=== PATIENT | female | born 2000 | race African-American/Black ===

== ENCOUNTER 2020-11-29 17:02 | Emergency (ER) | payer OTHER, SELFPAY ==
[2020-11-29 17:11] VITALS: BP 127/81; PULSE 64; RESP 24; TEMP 36.8; O2SAT 100
--- NOTE | 2020-11-29 17:33 | ED.WOUNDLAC ---
HPI - Wound/Laceration General Chief Complaint: Wound/Laceration Stated Complaint: insect bite Time Seen by Provider: 11/29/20 17:33 Source: patient Mode of arrival: ambulatory Limitations: no limitations History of Present Illness HPI narrative: Tia Olivares is a 19 yo female with no PMH who comes to express care with spider bite to L lateral ankle. She states it started last week and she opened it earlier in week and it was draining some clear fluid ans a little pus. Is not very tender but also is not clearing up No fever, N/V/D Related Data Allergies Allergy/AdvReac Type Severity Reaction Status Date / Time No Known Allergies Allergy Unknown Unverified 08/04/19 18:22 No Known Allergies Allergy Uncoded 08/04/19 18:22 Review of Systems Review of Systems: Narrative: CONSTITUTIONAL: Denies fever, chills, sweats. EYES: Denies visual changes, redness, discharge. ENT: Denies rhinorrhea, congestion, sore throat, otalgia. CARDIOVASCULAR: Denies chest pain, palpitations, edema. RESPIRATORY: Denies dyspnea, wheezing, cough GASTROINTESTINAL: Denies abdominal pain, nausea, vomiting, diarrhea. GENITOURINARY: Denies dysuria, hematuria, abnormal discharge SKIN: Left lateral wound on ankle NEUROLOGIC: Denies numbness, or focal weakness. PSYCHIATRIC: Denies anxiety or depression. [facility] Past Medical History Medical History No acute medical problems Family History Family History Other Hypertension Social History Social History (Updated 11/29/20 @ 17:36 by Kecia Carnes CNP) Smoking status: Never smoker Alcohol intake: never Comments At time of signature, I agree with nursing past medical, surgical, social and family history. There is no relevant family history pertinent to the presenting complaint. Exam Narrative: Exam Narrative: GENERAL: This is a well-nourished, well-developed patient, in mild distress. HEAD: normocephalic, atraumatic. EYES: . Sclera clear/white. Vision is grossly intact. EARS: External ears normal, . Hearing grossly intact. NOSE: External nose normal without nasal discharge, nares without redness, no rhinorrhea. THROAT: Mucous membranes moist, NECK: Neck supple, CARDIOVASCULAR: Regular rate and rhythm without murmurs, gallops, or rubs. RESPIRATORY: Clear to auscultation. Breath sounds equal bilaterally. No wheezes, rales, or rhonchi. GASTROINTESTINAL: Abdomen soft SKIN: warm, intact with 3 x 3 area on left lateral ankle that is mildly red not indurated not particularly tender that looks like small coalesced bumps - no extended edema around there NEURO: awake, alert, and oriented to person, place and time. There were no obvious focal neurologic abnormalities. Steady gait EXTREMITIES: Normal range of motion. BACK: Nontender without deformity Course Course Emergency Course: Patient came to express care to evaluate wound on left lateral ankle Bactrim and Keflex and warm soaks to ankle She is not to try to drain on her own is to keep it covered with a dressing during the day Follow-up with primary care physician Vital Signs Vital signs: Vital Signs Temperature 98.2 F 11/29/20 17:11 Pulse Rate 64 11/29/20 17:11 Respiratory Rate 24 H 11/29/20 17:11 Blood Pressure 127/81 11/29/20 17:11 Pulse Oximetry 100 11/29/20 17:11 Temperature 98.2 F 11/29/20 17:11 Pulse Rate 64 11/29/20 17:11 Respiratory Rate 24 H 11/29/20 17:11 Blood Pressure 127/81 11/29/20 17:11 Pulse Oximetry 100 11/29/20 17:11 MDM - Wound/Laceration Differential Diagnosis Differential diagnosis: Likely abscess, abrasion, avulsion of skin and other (Cellulitis vs insect bite) Critical Care Time Critical Care Time Critical Care Time: No Discharge Plan Discharge Clinical Impression: Cellulitis of left ankle Patient Disposition: Home, Self-Care Condition: Stable I
== END 2020-11-29 17:47 | disposition home or self-care (01) ==
PROVIDERS: Emergency Provider Nurse Practitioner; PCP Pediatrics
DX: L03.116 Cellulitis of left lower limb (principal)
CPT/HCPCS: 99213; G0463

== ENCOUNTER 2021-01-16 15:52 | Outpatient (RCR) | payer OTHER, SELFPAY | END 2021-04-16 23:59 | disposition home or self-care (01) | LOC: ANHLAB 15:52 | PROVIDERS: PCP Internal Medicine; Visit Provider Obstetrics & Gynecology | DX: O26.851 Spotting complicating pregnancy, first trimester (principal); Z3A.00 Weeks of gestation of pregnancy not specified | CPT/HCPCS: 36415; 84702; 85461 ==

== ENCOUNTER → 2021-01-24 14:24 | Outpatient (CLI) | payer OTHER, SELFPAY ==
--- NOTE | ~2021-01-24 | US_ITS ---
US OB transvaginal DATE: 01/24/2021 15:07 INDICATION: Vaginal spotting TECHNIQUE: Real-time imaging and Doppler analysis COMPARISON: None FINDINGS: The uterus measures 9.3 cm height, 5.6 cm AP and 6.5 cm transverse dimension. A normally sh aped intrauterine gestational sac is identified with normal surrounding decidual reaction, with pole and cardiac motion. Yolk sac is identified. No subchorionic hematoma is noted. [place]-rump length measurement 0.74 cm is consistent with estimated gestational age of 6 weeks 4 days +/- 4 days. 1.7 cm right ovarian cyst. The ovaries are otherwise unremarkable. Vascular flow is demonstrated to t he ovaries. No pelvic mass or abnormal pelvic free fluid collection is noted. IMPRESSION: Estimated gestational age of 6 weeks 4 days +/- 4 days; BONY by ultrasound is 09/15/2021, c ompared to 09/14/2021 by LMP Reviewed, dictated and finalized at [facility]. Reviewed, dictated and finalized at [facility]. IMPRESSION: Estimated gestational age of 6 weeks 4 days +/- 4 days; BONY by ultr asound is 09/15/2021, compared to 09/14/2021 by LMP
== END ==
PROVIDERS: Visit Provider Obstetrics & Gynecology
DX: O26.851 Spotting complicating pregnancy, first trimester (principal); Z3A.01 Less than 8 weeks gestation of pregnancy
CPT/HCPCS: 76817

== ENCOUNTER 2021-03-15 12:57 | Outpatient (CLI) | payer OTHER, SELFPAY ==
[2021-03-15 13:36] LABS: Basophils Percent Auto 0.4 % (0.2-1.2); Eosinophils Absolute Auto 0.1 K/mm3 (0-0.3); Eosinophils Percent Auto 1.1 % (0-4.4); Hematocrit 34.2 % (37.0-47.0); Hemoglobin 11.3 g/dL (12.0-15.0); Immature Granulocyte Absolute 0.03 K/mm3 (0.00-0.031); Immature Granulocyte Percent A 0.3 % (0-0.5); Lymphocytes Absolute Auto 1.71 K/mm3 (0.9-3.2); Lymphocytes Percent Auto 18.1 % (18.3-44.2); Mean Corpuscular Hemoglobin 29.6 pg (26-34); Mean Corpuscular Volume 89.5 fl (80-100); Mean Platelet Volume 9.3 fl (7.4-10.4); Monocytes Absolute Auto 0.5 K/mm3 (0.1-0.6); Monocytes Percent Auto 4.8 % (2.6-8.5); Neutrophils Absolute Auto 7.1 K/mm3 (1.3-6.7); Neutrophils Percent Auto 75.3 % (45.5-73.1); Platelet Count Result 219 k/mm3 (150-375); Red Blood Count 3.82 M/mm3 (4.2-5.4); Red Cell Distribution Width 14.6 % (11.5-14.5); White Blood Count 9.4 K/mm3 (4.5-10.0)
[2021-03-15 14:06] LABS: Hemoglobin A1C 5.2 % (<5.7)
[2021-03-15 14:26] LABS: Vitamin D 25 Hydroxy 27.6 ng/mL
[2021-03-15 14:27] LABS: HIV 1/2 Ab P24 Ag Result Negative (Negative)
[2021-03-15 14:38] LABS: Hepatitis B Surface Antigen Negative (Negative); Rubella IgG Antibody 59.5 IU/ML
[2021-03-18 08:55] LABS: Rapid Plasma Reagin Non-Reactive (NonReactive)
== END 2021-03-15 12:58 | disposition home or self-care (01) ==
PROVIDERS: PCP Internal Medicine; Visit Provider Obstetrics & Gynecology
DX: Z36.9 Encounter for antenatal screening, unspecified (principal); Z3A.00 Weeks of gestation of pregnancy not specified
CPT/HCPCS: 36415; 82306; 83036; 85025; 86592; 86703; 86762; 86850; 86900; 86901; 87340; G0432

== ENCOUNTER 2021-03-21 16:17 | Outpatient (CLI) | payer OTHER, SELFPAY ==
[2021-03-25 22:13] LABS: Hematocrit 34.4 % (35.0-45.0); Hemoglobin 11.7 g/dL (11.7-15.5); MCH 29.9 pg (27.0-33.0); RDW 15.5 % (11.0-15.0); Red Blood Cell Count 3.91 Mill/uL (3.80-5.10)
== END 2021-03-21 16:18 | disposition home or self-care (01) ==
PROVIDERS: PCP Internal Medicine; Visit Provider Obstetrics & Gynecology
DX: Z83.2 Family history of diseases of the blood and blood-forming organs and certain disorders involving the immune mechanism (principal)
CPT/HCPCS: 36415; 83021

== ENCOUNTER → 2021-04-12 10:16 | Outpatient (CLI) | payer OTHER, SELFPAY ==
--- NOTE | ~2021-04-12 | US_ITS ---
EXAMINATION: US OB >= 14 weeks Fetus DATE: 04/12/2021 11:25 INDICATION: anatomy scan during early second trimester of . TECHNIQUE: Multiple obstetric sonographic images performed. FINDINGS: There is a single living fetus in breech presentation. The placenta is fundal. Amniotic fluid volume is subjectively normal. heart rate of 146 beats per minute. The following anatomy was identified as normal: Ventricles, choroid plexus, falx and cava septum pellucidum Cerebellum and cisterna magna Nuchal fold Upper lip Spine Heart Diaphragm Stomach Kidneys Bladder 3 vessel cord and cord insertion Bilateral upper and lower extremities including hands and feet The following biometric data were obtained: BPD: 4.2 cm -> 18 weeks 4 days Head circumference: 15.4 cm -> 18 weeks 3 days Abdominal circumference: 12.9 cm -> 18 weeks 3 days Femur length: 2.3 cm -> 17 weeks 0 days The femoral length to head circumference ratio is greater than 2 standard deviations below the mean. These measurements are otherwise concordant. Head circumference to abdominal circumference ratio: 1.20 (normal range 1.08-1.27). Estimated weight: 212 g (+/-) 32 g. or 7 oz. (+/-) 1 oz. IMPRESSION: 1. Single living fetus with breech presentation with heart rate of 146 bpm. 2. Gestational age by ultrasound of 18 weeks 1 day(s) (+/-) 1 week 2 day(s) with ultrasound estimat ed date of delivery (BONY) of 09/12/2021. Estimated weight is 53rd percentile by Hadlock criteria when 09/15/2021 is used as the BONY. Please correlate with clinical information or earlier ultrasounds for most accurate BONY. 3. Normal survey. Reviewed, dictated and finalized at location [facility]. IMPRESSION: 1. Single living fetus with breech presentation with heart rate of 146 b pm. 2. Gestational age by ultrasound of 18 weeks 1 day(s) (+/-) 1 week 2 day(s) w ith ultrasound estimated date of delivery (BONY) of 09/12/2021. Estimated w eight is 53rd percentile by Hadlock criteria when 09/15/2021 is used as the BONY. Please correlate with clinical information or earlier ultrasounds for most acc urate BONY. 3. Normal survey.
== END ==
PROVIDERS: Visit Provider Obstetrics & Gynecology Gynecology
DX: Z36.9 Encounter for antenatal screening, unspecified (principal); Z3A.18 18 weeks gestation of pregnancy
CPT/HCPCS: 76805

== ENCOUNTER 2021-07-22 19:42 | Observation (INO) | payer OTHER, SELFPAY ==
[2021-07-22] VITALS (23 sets, daily range): BP systolic 99–122; BP diastolic 14–69; PULSE 66–121; O2SAT 97–100
[2021-07-22] MEDS: LACTATED RINGERS 1,000 ML 999 ML IV CONT (20:54)
[2021-07-22] MEDS: ONDANSETRON INJ 4 MG/2 ML VIAL IV PUSH (20:54)
[2021-07-22] MEDS: LACTATED RINGERS 1,000 ML 125 ML IV CONT (22:23)
[2021-07-22] MEDS: TERBUTALINE SULFATE 1 MG/ML VIAL 0.25 MG SUB-Q (23:16)
[2021-07-23] VITALS (53 sets, daily range): BP systolic 99–119; BP diastolic 42–62; PULSE 67–125; O2SAT 98–100
[2021-07-23] MEDS: TERBUTALINE SULFATE 1 MG/ML VIAL 0.25 MG SUB-Q (02:53)
[2021-07-23] MEDS: LACTATED RINGERS 1,000 ML 125 ML IV CONT (06:25)
--- NOTE | 2021-07-23 09:10 | PC.NURSE ---
0800- on unit, discussed pt's status overnight. discharge orders received.
--- NOTE | 2021-07-23 09:12 | OBADM ---
This patient, Tia Olivares, admitted to the OB room OB Post 116 for observation. Patient/family oriented to hospital policies and general routines including ID bracelet, bed and alarms, visiting hours, pain management, procedures, bathroom and other care routines, personal items, smoking policy, room service/diet, and visiting hours. Patient/Family are encouraged to report perceived risks to care and to ask questions if they do not understand what they are told or what they should do.
--- NOTE | 2021-07-25 07:31 | PM.OBTRLD ---
OB - Triage/Final Diagnosis Visit Information Reason for evaluation: other (nausea and vomiting) Comments/Additional reasons for admission: I have assessed the risk for this patient, Tia Ryan Olivares, and determined that she would benefit from observation care.
== END 2021-07-23 08:30 | disposition home or self-care (01) ==
PROVIDERS: Admitting Provider Obstetrics & Gynecology Gynecology; Visit Provider Obstetrics & Gynecology Gynecology
DX: O21.9 Vomiting of pregnancy, unspecified (principal); Z3A.00 Weeks of gestation of pregnancy not specified
CPT/HCPCS: 96360; 96361; 96372; 96374; G0378; G0379; J2405; J3105; J7120

== ENCOUNTER 2021-08-29 14:23 | Outpatient (CLI) | payer OTHER, SELFPAY ==
[2021-08-29] VITALS (7 sets, daily range): BP systolic 118–124; BP diastolic 75–81; PULSE 68–103
[2021-08-29 15:12] LABS: Basophils Percent Auto 0.2 % (0.2-1.2); Eosinophils Absolute Auto 0.1 K/mm3 (0-0.3); Eosinophils Percent Auto 0.6 % (0-4.4); Hematocrit 31.8 % (37.0-47.0); Hemoglobin 10.6 g/dL (12.0-15.0); Immature Granulocyte Absolute 0.05 K/mm3 (0.00-0.031); Immature Granulocyte Percent A 0.6 % (0-0.5); Lymphocytes Absolute Auto 1.54 K/mm3 (0.9-3.2); Lymphocytes Percent Auto 18.5 % (18.3-44.2); Mean Corpuscular HGB Conc 33.3 g/dl (32-36); Mean Corpuscular Hemoglobin 30.5 pg (26-34); Mean Corpuscular Volume 91.6 fl (80-100); Mean Platelet Volume 9.8 fl (7.4-10.4); Monocytes Absolute Auto 0.8 K/mm3 (0.1-0.6); Monocytes Percent Auto 9.7 % (2.6-8.5); Neutrophils Absolute Auto 5.8 K/mm3 (1.3-6.7); Neutrophils Percent Auto 70.4 % (45.5-73.1); Platelet Count Result 165 k/mm3 (150-375); Red Blood Count 3.47 M/mm3 (4.2-5.4); Red Cell Distribution Width 13.6 % (11.5-14.5); White Blood Count 8.3 K/mm3 (4.5-10.0)
[2021-08-29 15:24] LABS: Alanine Aminotransferase 16 U/L (4-35); Albumin Level 3.5 g/dL (3.5-5.1); Alkaline Phosphatase 119 U/L (38-126); Anion Gap 8 mmol/L (8-16); Aspartate Amino Transferase 30 U/L (14-36); Bilirubin,Total 0.6 mg/dL (0.2-1.3); Blood Urea Nitrogen 3 mg/dL (7-17); Calcium 9.1 mg/dL (8.4-10.2); Carbon Dioxide 23 mmol/L (22-30); Chloride 105 mmol/L (98-107); Estimated Glomerular Filt Rate > 60; Glucose 75 mg/dL (65-110); Potassium 3.7 mmol/L (3.4-5.0); Sodium 136 mmol/L (137-145); Uric Acid 4.5 mg/dL (2.5-7.5)
[2021-08-29 15:48] LABS: Add Urine Microscopic? NO; Appearance Urine Clear (Clear); Bilirubin Urine Negative (Negative); Blood Urine Negative (Negative); Color Urine Yellow (Yellow); Glucose Urine UA Negative (Negative); Ketones Urine Negative (Negative); Leukocyte Esterase Ur Negative LEU/UL (NEGATIVE); Nitrate Urine Negative (Negative); Protein Urine Negative (Negative); Specific Grav Ur 1.006 (1.001-1.035); Urobilinogen Urine Negative mg/dL (<2.0)
[2021-08-29 15:53] LABS: Creatinine Urine 60.8 mg/dL; Total Protein Urine Random 6 mg/dL
--- NOTE | 2021-08-29 16:07 | PC.NURSE ---
1606--Report to Dr. Fu re: v.s., labwork results, and reactive NST. Orders to send pt. home with instructions for 24hr. urine to be returned tomorrow.
== END 2021-08-29 16:15 | disposition home or self-care (01) ==
LOC: ANHOBOP 14:29 → ANHOBPP 09-03 07:32
PROVIDERS: Visit Provider Obstetrics & Gynecology
DX: O13.9 Gestational [pregnancy-induced] hypertension without significant proteinuria, unspecified trimester (principal); Z3A.00 Weeks of gestation of pregnancy not specified
CPT/HCPCS: 36415; 59025; 80053; 81003; 82570; 84156; 84550; 85025; 87086; 99199

== ENCOUNTER 2021-08-30 16:54 | Outpatient (NON) | payer OTHER, SELFPAY ==
[2021-08-30 17:14] VITALS: BMI 31.6
[2021-08-30 19:50] LABS: Collection Time Urine 24 HOURS
[2021-08-30 19:51] LABS: Patient Weight 190 Lbs; Total Volume 24 Hour Urine 2400 ml
[2021-08-30 20:06] LABS: Creatinine Clearance Urine 163.9 ml/min (75-125); Creatinine Urine 65.8 mg/dL; Total Protein Urine 24 Hr 168 mg/24hr (28-141); Total Protein Urine Random 7 mg/dL
== END 2021-08-30 16:55 | disposition home or self-care (01) ==
LOC: ANHOBOP 17:11
PROVIDERS: Visit Provider Obstetrics & Gynecology
DX: Z34.90 Encounter for supervision of normal pregnancy, unspecified, unspecified trimester (principal); Z3A.00 Weeks of gestation of pregnancy not specified
CPT/HCPCS: 81050; 82575; 84156

== ENCOUNTER 2021-09-09 12:11 | Observation (INO) | payer OTHER, SELFPAY ==
--- NOTE | 2021-09-09 12:11 | OBADM ---
This patient, Tia Olivares, admitted to the OB room Labor/Delivery/Recovery 107 for observation. Patient/family oriented to hospital policies and general routines including ID bracelet, bed and alarms, visiting hours, pain management, procedures, bathroom and other care routines, personal items, smoking policy, room service/diet, and visiting hours. Patient/Family are encouraged to report perceived risks to care and to ask questions if they do not understand what they are told or what they should do.
--- NOTE | 2021-09-16 07:35 | PM.OBTRLD ---
OB - Triage/Final Diagnosis Visit Information Reason for evaluation: threatened labor Comments/Additional reasons for admission: I have assessed the risk for this patient, Tia Olivares, and determined that she would benefit from observation care.
== END 2021-09-09 15:05 | disposition home or self-care (01) ==
PROVIDERS: Admitting Provider Obstetrics & Gynecology Gynecology; Visit Provider Obstetrics & Gynecology Gynecology
DX: O47.03 False labor before 37 completed weeks of gestation, third trimester (principal); Z3A.39 39 weeks gestation of pregnancy
CPT/HCPCS: G0378; G0379

== ENCOUNTER 2021-09-10 00:35 | Inpatient (IN) | payer OTHER, SELFPAY ==
[2021-09-10] VITALS (132 sets, daily range): BP systolic 100–156; BP diastolic 44–91; PULSE 16–215; RESP 16–18; TEMP 36.7–37.2; O2SAT 96–100; BMI 29.5
--- NOTE | 2021-09-10 01:21 | LDADM ---
This patient, Tia Olivares, was admitted to Labor/Delivery/Recovery 106 on 09/10/21 at 00:35. Plans for labor, pain management and were discussed with patient. Patient/family oriented to hospital policies and general routines including ID bracelet, bed and alarms, visiting hours, pain management, procedures, bathroom and other care routines, personal items, smoking policy, room service/diet and guest tray routines, security routines, and visiting hours. Patient/Family are encouraged to report perceived risks to care and to ask questions if they do not understand what they are told or what they should do. See OBIX for further documentation.
[2021-09-10 01:36] LABS: Basophils Percent Auto 0.2 % (0.2-1.2); Hematocrit 35.8 % (37.0-47.0); Hemoglobin 11.9 g/dL (12.0-15.0); Immature Granulocyte Absolute 0.09 K/mm3 (0.00-0.031); Immature Granulocyte Percent A 0.7 % (0-0.5); Lymphocytes Absolute Auto 1.73 K/mm3 (0.9-3.2); Lymphocytes Percent Auto 14.1 % (18.3-44.2); Mean Corpuscular HGB Conc 33.2 g/dl (32-36); Mean Corpuscular Hemoglobin 29.7 pg (26-34); Mean Corpuscular Volume 89.3 fl (80-100); Mean Platelet Volume 10.1 fl (7.4-10.4); Monocytes Absolute Auto 0.7 K/mm3 (0.1-0.6); Neutrophils Absolute Auto 9.7 K/mm3 (1.3-6.7); Platelet Count Result 223 k/mm3 (150-375); Red Blood Count 4.01 M/mm3 (4.2-5.4); Red Cell Distribution Width 13.8 % (11.5-14.5); White Blood Count 12.3 K/mm3 (4.5-10.0)
--- NOTE | 2021-09-10 02:08 | WPDANESEPPF ---
Anes - Initial Pre Proc Eval Procedure: labor epidural Date/Time: 09/10/21 02:08 Surgeon: Christiano Fu MD Pre Op Diagnosis: labor pain Pre Op Diagnosis: Contractions Patient Data Age: 20 Gender: F Height: 1.65 m Weight: 80.5 kg Last Vital Signs Pulse 105 H 09/10/21 02:06 BP 147/71 H 09/10/21 02:06 Pulse Ox 100 09/10/21 02:05 Allergies Allergy/AdvReac Type Severity Reaction Status Date / Time No Known Allergies Allergy Unknown Unverified 08/04/19 18:22 Home Medications Medication Instructions Recorded Confirmed Type 1 tablet PO DAILY 08/29/21 09/10/21 History ferrous sulfate [Iron (ferrous 325 mg PO DAILY 08/29/21 09/10/21 History sulfate)] Laboratory Tests 09/10/21 09/10/21 01:06 01:06 WBC 12.3 K/mm3 H K/mm3 (4.5-10.0) RBC 4.01 M/mm3 L M/mm3 (4.2-5.4) Hgb 11.9 g/dL L g/dL (12.0-15.0) Hct 35.8 % L % (37.0-47.0) MCV 89.3 fl fl (80-100) MCH 29.7 pg pg (26-34) MCHC 33.2 g/dl g/dl (32-36) RDW 13.8 % % (11.5-14.5) Plt Count 223 k/mm3 k/mm3 (150-375) MPV 10.1 fl fl (7.4-10.4) Immature Gran % (Auto) 0.7 % H % (0-0.5) Neut % (Auto) 79.0 % H % (45.5-73.1) Lymph % (Auto) 14.1 % L % (18.3-44.2) [place] % (Auto) 6.0 % % (2.6-8.5) Eos % (Auto) 0.0 % % (0-4.4) Baso % (Auto) 0.2 % % (0.2-1.2) Lymph # (Auto) 1.73 K/mm3 K/mm3 (0.9-3.2) Sampson # (Auto) 0.7 K/mm3 H K/mm3 (0.1-0.6) Eos # (Auto) 0.0 K/mm3 K/mm3 (0-0.3) Baso # (Auto) 0.0 K/mm3 K/mm3 (0.0-0.1) Abs Immat Gran (auto) 0.09 K/mm3 H K/mm3 (0.00-0.031) Absolute Neuts (auto) 9.7 K/mm3 H K/mm3 (1.3-6.7) Absolute Nucleated RBC 0.0 K/mm3 K/mm3 (0.0-0.012) Nucleated RBC % 0.0 % % (0.0-0.2) RPR Pending Patient hx anesthesia problems: none Family hx anesthesia problems: none Results Review: All pre-operative results and documents have been reviewed as part of the pre-operative evaluation. [facility] Past Medical History Medical History Asthma No acute medical problems Seasonal allergies Family History Family History Mother Hypertension Father Cancer Grandparent Cancer Social History Social History Smoking status: Never smoker Alcohol intake: never Substance use: never Gender identity (if verbalized by the patient): Female Sexual Orientation (if Verbalized by the Patient): Straight or Heterosexual Spiritual care concerns: No Anes - Eval Final PreProcedure Day of Procedure 09/10/21 02:08 Patient weight: overweight ASA classification: II Anesthesia type and monitoring: regional epidural and standard monitoring Results Review: All pre-operative results and documents have been reviewed as part of the pre-operative evaluation. Informed Consent: The patient's anesthetic plan and its attendant risks and benefits were discussed with the patient/family/POA. Questions were solicited and answers provided to the satisfaction of the patient/family/POA.
[2021-09-10] MEDS: LACTATED RINGERS 1,000 ML 125 ML IV CONT (02:21)
--- NOTE | 2021-09-10 04:41 | WPDOBADMIT ---
Obstetrics - Admit Note Admission Note: record reviewed. No pertinent additions to the history and/or any subsequent changes in the physical findings that are not consistent with the expected course of the were found. AROm clear fluid 7 cm vertex. Additions to the history and/or subsequent changes in the physical findings follow. None.
[2021-09-10] MEDS: OXYTOCIN 30 UNITS/NS 500 ML 30 UNITS/500 ML BAG IV CONT (05:03)
[2021-09-10 07:29] LABS: Rapid Plasma Reagin Non-Reactive (NonReactive)
[2021-09-10] MEDS: ONDANSETRON INJ 4 MG/2 ML VIAL IV PUSH (09:12)
--- NOTE | 2021-09-10 10:38 | PM.OBPRVD ---
OB - Delivery Note Procedure Delivery date: 09/10/21 Procedure: Intrapartal events: None Induction method: none Delivery augmentation: rupture of membranes and pitocin Delivery monitor: external FHT and internal uterine Route of delivery: Laceration Description: Perineal - 2nd Degree Delivery repair: vicryl (3-0) Specimen: Yes (placenta) Quantitative Blood Loss (ml): 425 Anesthesia type: Epidural Disposition: floor Baby Date of : 09/10/21 Weeks of gestation at delivery: 39 gender: Male presentation: vertex position: Right Occiput Anterior Placenta delivery description: Spontaneous cord vessel description: 3 Vessels and Nuchal Cord score one minute: 9 score five minutes: 9
--- NOTE | 2021-09-10 10:39 | P.DS_ITS ---
DS: Admitting Diagnosis Discharge Date 09/12/21 Admitting Diagnosis labor DS: Discharge Diagnosis Discharge Diagnosis (1) (normal spontaneous vaginal delivery): Code(s): O80 - Encounter for full-term uncomplicated delivery Status: Acute OB - DS: Summary OB Procedures : Ultrasound OB Procedures Intrapartum: Spontaneous Vag Delivery OB Procedures: : None Peripartum Data Delivery Method: Natural Vaginal Laceration Description: Perineal - 2nd Degree complications: none Status at Discharge Functional status at discharge: independent ambulation Overall status at discharge: patient is progressing back to baseline Time Spent with Patient Time attestation: Total time spent providing and/or coordinating discharge services: DS: Data Data Completed and Pending Labs on day of discharge: Labs from last 24 hours 09/10/21 09/10/21 09/10/21 01:06 01:06 01:06 WBC 12.3 H RBC 4.01 L Hgb 11.9 L Hct 35.8 L MCV 89.3 MCH 29.7 MCHC 33.2 RDW 13.8 Plt Count 223 MPV 10.1 Immature Gran % (Auto) 0.7 H Neut % (Auto) 79.0 H Lymph % (Auto) 14.1 L [place] % (Auto) 6.0 Eos % (Auto) 0.0 Baso % (Auto) 0.2 Lymph # (Auto) 1.73 [place] # (Auto) 0.7 H Eos # (Auto) 0.0 Baso # (Auto) 0.0 Abs Immat Gran (auto) 0.09 H Absolute Neuts (auto) 9.7 H Absolute Nucleated RBC 0.0 Nucleated RBC % 0.0 RPR Non-reactive Blood Type AB Positive Antibody Screen Negative Discharge Plan Discharge Attending physician on discharge: Christiano Fu Discharging Clinician: Leandra Leon Anticipated Discharge Date/Time: 09/12/21 10:40 Patient Disposition: Home, Self-Care Activity: may shower and pelvic rest Diet: regular Patient Instructions: Antibiotic Form Stand Alone Forms: General Discharge Information Follow-up/Referrals: Christiano Fu MD [Physician] - 6 Weeks Discharge Medications: New norethindrone (contraceptive) 0.35 mg tablet 0.35 mg PO DAILY Qty: 28 RF: 6 Continued ferrous sulfate [Iron (ferrous sulfate)] 325 mg (65 mg iron) Tablet 325 mg PO DAILY RF: 0 28-800 mg-mcg Tablet 1 tablet PO DAILY RF: 0 Date of admission: 09/10/21 00:35 Primary Care Provider: PHYSICIAN,TELEVISION ENGINEER Admitting Provider: Christiano Fu Attending physician on admission: Christiano Fu Condition: Stable
[2021-09-10] MEDS: OXYTOCIN 30 UNITS/NS 500 ML 30 UNITS/500 ML BAG 125 UNITS IV CONT (11:00)
[2021-09-10] MEDS: IBUPROFEN 600 MG TABLET PO (12:42)
[2021-09-10] MEDS: WITCH HAZEL 40 PADS 1 PAD TOPICAL (12:43)
[2021-09-10] MEDS: BENZOCAINE 20% AER SPR (*SP) 56 GM CAN 1 SPRAY TOPICAL (12:43)
--- NOTE | 2021-09-10 13:50 | PC.NURSE ---
Mother called out for assist with feeding, reporting eagerly fed for first feeding. is able to freely thrust tongue past gum ridge and flange both lips. Skin is intact on both nipples, no redness and bruising noted. Reviewed feeding cues, frequencies, duration of feedings, feeding elimination flow sheet, and signs of adequate intake. Demonstrated stimulation techniques to wake for feeding. Assisted with to breast. Reviewed positioning/alignment in cross cradle, holding breast in ?U? hold and guided asymmetrical latch on. Reviewed rational for each. Infant able to latch correctly within a few attempts. nursed eagerly with steady draws and occasional/frequent swallowing noted, some pausing noted. Reviewed signs of a correct latch, effective nursing and suck swallow ratio. Suggested mother stimulate while feeding to increase stimulation for milk supply, for increased intake and to assist with maintaining deep latch. would slip to shallow latch causing tenderness. Demonstrated how to adjust latch more deeply while feeding if needed. Mother reports she can feel the difference in latch with no tenderness. Nipple care reviewed of lanolin after feedings, warm compresses as needed. Instructed mother to call out for RN assistance if she is unable to latch infant for feeding or she has discomfort with nursing. Instructed feeding should be initiated three hours from start of last feeding or if feeding cues are noted before. Mother voiced understanding of information shared.
--- NOTE | 2021-09-10 14:00 | PC.NURSE ---
Patient transferred to post room #283 via wheelchair. Support person present. Oriented to unit, room, information board, rooming in, admission packet and security measures. Patient verbalizes understanding.
[2021-09-10] MEDS: ACETAMINOPHEN 325 MG TABLET 650 MG PO (17:05)
[2021-09-11] MEDS: IBUPROFEN 600 MG TABLET PO ×3 (00:43→16:51)
[2021-09-11] MEDS: ACETAMINOPHEN 325 MG TABLET 650 MG PO (00:43)
[2021-09-11 04:30] VITALS: BP 106/52; PULSE 98; RESP 18; TEMP 36.7
[2021-09-11 04:58] LABS: Hematocrit 27.5 % (37.0-47.0); Hemoglobin 9.2 g/dL (12.0-15.0)
[2021-09-11 08:15] VITALS: BP 117/63; PULSE 76; RESP 18; TEMP 36.8; O2SAT 98
[2021-09-11] MEDS: POLYSACCHARIDE IRON COMPLEX 150 MG CAPSULE PO ×2 (08:47→16:51)
[2021-09-11] MEDS: MULTIVIT/MIN/PREN/FOL AC/IRON TABLET 1 TAB PO (08:48)
[2021-09-11] MEDS: DOCUSATE SODIUM 100 MG CAPSULE PO ×2 (08:48→16:51)
--- NOTE | 2021-09-11 08:56 | WPDANLDPN2 ---
Anes-Prog Note L&D Date/Time: 09/11/21 08:56 Comfortable throughout: labor and delivery (perineal pressure only) Neuraxial method: epidural Epidural/Spinal procedure site: clean & non-tender Neuro status: Neuro function grossly intact. Cardiovascular status: normal Respiratory status: normal Airway patency: baseline Mental status: baseline Post-Op hydration status: normal Vital Signs: Last Vital Signs Temp 98.0 F 09/11/21 04:30 Pulse 98 09/11/21 04:30 Resp 18 09/11/21 04:30 BP 106/52 L 09/11/21 04:30 Pulse Ox 96 09/10/21 16:00 Pain score (VAS): 0 Post-procedural complaints: none Patient feedback: Patient satisfied with anesthetic care.
[2021-09-11 18:30] VITALS: BP 126/67; PULSE 74; RESP 18; TEMP 37.1
[2021-09-12] MEDS: ACETAMINOPHEN 325 MG TABLET 650 MG PO ×2 (00:08→05:00)
[2021-09-12] MEDS: IBUPROFEN 600 MG TABLET PO ×2 (00:09→08:56)
--- NOTE | 2021-09-12 07:37 | PM.OBPNVD ---
OB - PN: Subj Subjective Date/time seen: 09/12/21 07:37 Patient comments: no complaints and pain well controlled baby status: doing well OB - PN: Obj Data Labs CBC & Chem 7: 09/11/21 03:41 OB - PN A/P Plan day: 2 Plan: routine care, discharge home, follow up 6 weeks and other (plans micronor for bc) Time Spent With Patient Time: Total time spent is greater than 50% in coordination of care (as documented) at patient's floor/unit and/or counseling patient: Exam : Bimanual exam- vagina & uterus: other (Uterus firm, nt @U)
[2021-09-12 08:35] VITALS: BP 121/67; PULSE 71; RESP 16; TEMP 36.6; O2SAT 100
[2021-09-12] MEDS: POLYSACCHARIDE IRON COMPLEX 150 MG CAPSULE PO (08:56)
[2021-09-12] MEDS: MULTIVIT/MIN/PREN/FOL AC/IRON TABLET 1 TAB PO (08:56)
[2021-09-12] MEDS: DOCUSATE SODIUM 100 MG CAPSULE PO (08:56)
--- NOTE | 2021-09-12 09:00 | PC.NURSE ---
Patient viewed the discharge video Mother & Baby Care, The First Two Weeks . Patient was given the opportunity and encouraged to ask questions. Patient verbalized understanding of information shared and has been given the mother/baby guide for home reference.
--- NOTE | 2021-09-12 10:01 | PM.OBPNVD ---
OB - PN: Subj Subjective Date/time seen: 09/11/21 07:50 doing well no complaints OB - PN: Obj Data Labs CBC & Chem 7: 09/11/21 03:41 OB - PN A/P Assessment and Plan (1) (normal spontaneous vaginal delivery): Code(s): O80 - Encounter for full-term uncomplicated delivery Status: Acute Assessment and Plan: continue with pp care Time Spent With Patient Time: Total time spent is greater than 50% in coordination of care (as documented) at patient's floor/unit and/or counseling patient: Exam Narrative: ff below umbilicus
--- NOTE | 2021-09-12 10:51 | PC.NURSE ---
Consult with pt., observed mother is able to independently latch infant with appropriate positioning/alignment. Infant eagerly latches on first attempt with long rhythmical draws and frequent swallowing noted. Mother reports she no longer has issues with latching to right breast after previous assist with cross cradle. She denies any nipple discomfort, is feeding as required and waking to feed if needed. has had at least 8 effective feedings in the past 24 hours, and is currently meeting outcomes for weight, output, jaundice and feeding frequencies. Mother states she feels confident to continue effective at home. Reviewed transition to breast milk, signs of adequate intake, and engorgement/relief. Instructed to call ICP if intake/output less than required. Reviewed regular medications mother is taking. Information provided per Brielle. Reviewed community resources on the [employer] website and in the Mom/Baby guide. Information on outpatient services provided. Mother has no further questions at this time. All information reviewed with pt.'s mother per her request. Instructed feeding should be initiated three hours from start of last feeding or if feeding cues are noted before until seen by ICP. Mother voiced understanding of information shared.
[2021-09-13 11:58] VITALS: BP 135/74; PULSE 84; RESP 20; TEMP 37.7; O2SAT 100
== END 2021-09-12 11:42 | disposition home or self-care (01) | DRG 807 ==
LOC: ANHLDR 10:41 → ANHOB2 09-12 08:30 → ANHLDR 09-13 08:57 → ANHOB2 09-13 08:57
PROVIDERS: Admitting Provider Obstetrics & Gynecology; Visit Provider Obstetrics & Gynecology Gynecology
DX: O69.81X0 Labor and delivery complicated by cord around neck, without compression, not applicable or unspecified (principal); Z37.0 Single live birth; O70.1 Second degree perineal laceration during delivery; Z3A.39 39 weeks gestation of pregnancy
CPT/HCPCS: 36415; 85014; 85018; 85025; 86592; 86850; 86900; 86901; 88307; A9270; G0378; G0379; J2405; J2590; J7120

== ENCOUNTER → 2022-01-24 04:42 | Outpatient (CLI) | payer OTHER, SELFPAY ==
[2022-01-24 11:31] LABS: SARS-CoV-2 RNA PCR Negative
== END ==
PROVIDERS: Visit Provider Obstetrics & Gynecology Gynecology
DX: Z01.812 Encounter for preprocedural laboratory examination (principal); Z20.822 Contact with and (suspected) exposure to COVID-19
CPT/HCPCS: C9803; U0003; U0005

== ENCOUNTER 2022-01-27 02:25 | Day surgery (SDC) | payer OTHER, SELFPAY ==
[2022-01-22 11:43] VITALS: BMI 26.6
--- NOTE | 2022-01-22 11:52 | PC.NURSE ---
Report to the Outpatient Waiting Room, entrance under the green pavilion located off [facility], at time 1030 on date 01/27/22. OR Time: 1230. - You and your visitor will be asked a series of questions to screen for COVID 19 for your protection. - A mask is required within the hospital. One visitor will be allowed to accompany the patient into the hospital. Patients visitor will be instructed to remain with patient at all times or leave the building. We will allow the visitor to come back to the postoperative area when patient is ready. Preoperative COVID Testing Requirements: COVID TEST 01/24 AT 0945 No COVID Test needed if: (proof is required; if not received patient will have Rapid Test prior to entry) - Patient has received COVID Vaccine at least 14 days prior to procedure date or - Patient has positive COVID test result within last 90 days of surgery date. COVID Test needed if above criteria is not met If not COVID vaccinated a COVID test must be conducted within 72 hours of surgery and patient is asked to isolate self from time of testing until procedure. You will go to the [facility] [place] [facility] for your COVID testing. The [facility] is located at the corner of [address] [facility]. You will only be called if COVID results are positive and your surgeon may reschedule your elective surgery date. Patients may have clear liquids (water, carbonated beverages, clear teas, apple juice) until 3 hours prior to surgery with a maximum of 20 ounces. - No food from midnight until time of surgery Take the following medications with a SIP of water the morning of surgery: NONE Medications to discontinue per physician: VITAMINS/SUPPLEMENTS Date to take last dose: 01/23/22 Please no make-up, nail canadian, hairspray, perfume, deodorant, or body powder the day of surgery. No jewelry (including any body piercings) or valuables the day of surgery, leave them at home. Please take a shower or bath the night before, or the morning of, surgery with an antibacterial soap. Wear comfortable, loose fitting clothing. - Jewelry must be removed prior to entering the operating room. Rings and piercings that are not removed may be cut off. - The hospital will not accept responsibility for valuables. - Please leave all valuables, including medications, at home the day of surgery. If you are going home after surgery, a licensed bottom hoop driver must drive you home. - NO public transportation without another adult. - We recommend that an adult stay with you for 24 hours following discharge. - We also recommend that you do not drive, make important decision, drink alcoholic beverages, or take any drugs that were not prescribed by your health care provider for at least 24 hours after your discharge time. Follow any additional instructions given to you from your surgeon. Telephone instructions given to WALLACE STEINER and asked if any additional questions and then verbalized understanding. Patient advised to call surgeon office or pre surgery nurse liaison [phone] if any additional questions.
--- NOTE | 2022-01-27 07:44 | WPDHPUPDATE1 ---
History and Physical Update Update Date/Time: 01/27/22 07:44 History and Physical has been reviewed, including an updated exam of the patient. There are NO changes in the patient's condition. Risks, benefits, and alternatives have been discussed and questions answered. Patient agrees to proceed with procedure.
--- NOTE | 2022-01-27 07:44 | PM.HPGS ---
History of Present Illness History of Present Illness Consent: Risks, benefits, and alternatives have been discussed and questions answered. Patient agrees to proceed with procedure. Chief complaint: Granulation, Open Wound Perineum Narrative: Tia Olivares is a 21 year old female who delivered September 10, 2021. She and a second-degree laceration that has continued to developed granulation tissue and not fully closed. Patient has been seen in the office several times for silver nitrate application and x1 excision of granulation tissue. It was recommended to proceed with peritoneal revision in the operating room. Risks of infection, bleeding, and persistent pain were reviewed. Patient voiced understanding and agrees to proceed. Review of Systems Review of Systems: not repeated day of surgery; patient states no changes in status PMFSH Past Medical History Medical History (Updated 01/27/22 @ 07:48 by Leandra Leon MD) Asthma No acute medical problems (normal spontaneous vaginal delivery) Seasonal allergies Family History Family History Mother Hypertension Father Cancer Grandparent Cancer Social History Social History Smoking status: Never smoker Alcohol intake: never Substance use: never Substance use type: does not use Living arrangements: with family Gender identity (if verbalized by the patient): Female Sexual Orientation (if Verbalized by the Patient): Straight or Heterosexual Spiritual care concerns: No Meds Home Medications and Allergies Home Medications Medication Instructions Recorded Confirmed Type 1 tablet PO DAILY 08/29/21 01/22/22 History ferrous sulfate [Iron (ferrous 325 mg PO DAILY 08/29/21 01/22/22 History sulfate)] Allergies Allergy/AdvReac Type Severity Reaction Status Date / Time No Known Allergies Allergy Unknown Unverified 01/22/22 11:42 Exam Const: General: healthy appearing and alert Orientation/consciousness: patient oriented x3 GI: GI Palp: Yes Soft to palpation, No Tenderness to palpation present (GI) and No Palpable mass present : External Female Exam: other (Granulation tissue in the posterior perineum with 1cm open wound) Speculum Exam - Vagina: normal appearance of the vagina and normal vaginal discharge Speculum Exam - Cervix: normal appearance of the cervix Bimanual exam- vagina & uterus: uterine size normal and consistency normal Bimanual Exam- Adnexa, other: normal adnexae and No adnexal tenderness Neuro: General: patient oriented x3 Assessment and Plan Assessment and plan (1) Laceration: Status: Acute Assessment and Plan: Of the perineum during childbirth that has not healed. Plan is to proceed with local excision and closure.
[2022-01-27] MEDS: LACTATED RINGERS 1,000 ML 30 ML IV CONT (10:55)
--- NOTE | 2022-01-27 11:09 | WPDANESEPPF ---
Anes - Initial Pre Proc Eval Procedure: Operation Date: 01/27/22 12:30 Proposed Procedures p Perineal Revision - Leandra Leon MD Date/Time: 01/27/22 11:09 Surgeon: Leandra Leon MD Pre Op Diagnosis: Granulation, Open Wound Perineum Patient Data Age: 21 Gender: F Height: 1.65 m Weight: 72.57 kg Allergies Allergy/AdvReac Type Severity Reaction Status Date / Time No Known Allergies Allergy Unknown Unverified 01/22/22 11:42 Home Medications Medication Instructions Recorded Confirmed Type 1 tablet PO DAILY 08/29/21 01/22/22 History ferrous sulfate [Iron (ferrous 325 mg PO DAILY 08/29/21 01/22/22 History sulfate)] Patient hx anesthesia problems: none Family hx anesthesia problems: none Results Review: All pre-operative results and documents have been reviewed as part of the pre-operative evaluation. PMFSH Past Medical History Medical History Asthma No acute medical problems (normal spontaneous vaginal delivery) Seasonal allergies Family History Family History Mother Hypertension Father Cancer Grandparent Cancer Social History Social History Smoking status: Never smoker Alcohol intake: never Substance use: never Substance use type: does not use Living arrangements: with family Gender identity (if verbalized by the patient): Female Sexual Orientation (if Verbalized by the Patient): Straight or Heterosexual Spiritual care concerns: No Anes - Eval Final PreProcedure Day of Procedure 01/27/22 11:09 Patient weight: overweight Heart: regular rate and rhythm Lungs: clear to auscultation Airway: Mallampati scale class II Neurological: alert and oriented Last oral intake: >/= 8 hours ASA classification: II Emergent: no Anesthetic plan: proceed Anesthesia type and monitoring: general GIVS and standard monitoring Results Review: All pre-operative results and documents have been reviewed as part of the pre-operative evaluation. Informed Consent: The patient's anesthetic plan and its attendant risks and benefits were discussed with the patient/family/POA. Questions were solicited and answers provided to the satisfaction of the patient/family/POA.
[2022-01-27 11:13] LABS: Hematocrit 40.2 % (37.0-47.0); Hemoglobin 13.1 g/dL (12.0-15.0)
[2022-01-27 11:14] VITALS: BP 115/67; PULSE 97; RESP 16; TEMP 37.2; O2SAT 100
[2022-01-27] MEDS: LIDO 1%/EPINEPHRINE 1:100,000 50 ML VIAL 30 ML INFILTRATE (11:30)
--- NOTE | 2022-01-27 11:44 | W.PM.PROC2 ---
Procedure Note - Detailed Date of Procedure 01/27/22 Pre-op Diagnosis Granulation, Open Wound Perineum Post-op Diagnosis Same Procedure Performed Perineal wound revision Surgeon Leandra Leon MD Anesthesia MAC and Local Findings Approximately 1cm of granulation tissue noted with the underlying tissue open Description of Procedure The patient was taken to the operating room and placed under anesthesia in the dorsal lithotomy position. She was prepped and draped in usual sterile fashion. The perineal area was injected with 1% lidocaine with epinephrine. The granulation tissue was excised with Metzenbaum sent discarded. A 2x1cm elliptical was made around the 1cm wound and the superficial skin layers are excised. Bleeding vessels are cauterized. The defect is then closed using 3-0 Vicryl on an SH needle in a subcuticular fashion. Good hemostasis is noted. Wound is not under tension. Patient is awakened from anesthesia and taken to recovery in stable condition. Sponge, needle, and instrument counts are correct per the OR staff. Estimated Blood Loss 5 Drains No Packing No Pathology None sent Complications No immediate complications Condition Stable Disposition PACU
[2022-01-27 11:50] VITALS: BP 114/71; PULSE 79; RESP 16; O2SAT 100
[2022-01-27 12:20] VITALS: BP 110/78; PULSE 71
== END 2022-01-27 12:48 | disposition home or self-care (01) ==
PROVIDERS: Visit Provider Obstetrics & Gynecology Gynecology
PROC: (CPT 59300; principal; 2022-01-27 12:30)
DX: O90.1 Disruption of perineal obstetric wound (principal); J45.909 Unspecified asthma, uncomplicated
CPT/HCPCS: 56810; 36415; 85014; 85018; A9270; C9803; J1100; J2250; J2405; J2704; J3010; J7120; U0003; U0005

== ENCOUNTER 2023-03-11 11:44 | Emergency (ER) | payer OTHER, SELFPAY ==
--- NOTE | ~2023-03-11 | US_ITS ---
EXAMINATION: US OB <=14 wk fetus w TV DATE: 03/11/2023 13:00 INDICATION: Vaginal bleeding. Cramping. . TECHNIQUE: Real-time transabdominal and transvaginal pelvic ultrasound was performed. COMPARISON: None. FINDINGS: TRANSABDOMINAL ULTRASOUND: The uterus measures 9.5 x 6.0 x 6.8 cm. TRANSVAGINAL ULTRASOUND: There is an intrauterine gestational sac. A yolk sac is identified. The fet al crown rump length measures 2 mm, which correlates with an estimated gestational age of 5 weeks and 5 day(s) (+/-) 4 day(s). heart motion is identified measuring 112 beats per minute (bpm) by M- mode Doppler. The right ovary measures 3.5 x 2.0 x 2.4 cm. The left ovary measures 2.3 x 1.6 x 1.8 cm . There is physiologic free fluid in the pelvis. IMPRESSION: 1. Single living intrauterine gestation with estimated date of delivery of 11/06/2023. Reviewed, dictated and finalized at location A. IMPRESSION: 1. Single living intrauterine gestation with estimated date of delivery of .
[2023-03-11 11:47] VITALS: BP 136/71; PULSE 107; RESP 16; TEMP 36.9; O2SAT 100
--- NOTE | 2023-03-11 12:07 | ED.FEMALEGU ---
HPI - Female Genitourinary General Chief complaint: Vaginal Bleeding Stated complaint: vaginal bleeding Time Seen by Provider: 03/11/23 11:59 History of Present Illness HPI Narrative: Patient is a 22-year-old G2, P1 presenting with vaginal bleeding. Patient states that for the last 2 weeks she has had spotting when wiping. States that she has also had lower abdominal cramping that is worsened over the last 2 weeks. States that her last menstrual period was January 31. She went to urgent care earlier today and a urine test was positive so she was advised to come here for further evaluation. Patient states that she has been taking ibuprofen and cold medicines with minimal relief. States that she has had some dysuria. Denies fevers or chills, chest pain, shortness of breath, lightheadedness, syncope, diarrhea, leg swelling. Related Data Home Medications Medication Instructions Recorded Confirmed ferrous sulfate 325 mg (65 mg 325 mg PO DAILY 08/29/21 01/27/22 iron) tablet (Iron (ferrous sulfate)) vit no.133-ferrous 1 tablet PO DAILY 08/29/21 01/27/22 fumarate 28 mg-folic acid 800 mcg tablet () Allergies Allergy/AdvReac Type Severity Reaction Status Date / Time No Known Allergies Allergy Unknown Unverified 03/11/23 11:51 Review of Systems Review of Systems: All systems reviewed & are unremarkable except as noted in HPI and below PMFSH Past Medical History Medical History Asthma No acute medical problems (normal spontaneous vaginal delivery) Seasonal allergies Family History Family History Mother Hypertension Father Cancer Grandparent Cancer Social History Social History Smoking status: Never smoker Alcohol intake: never Substance use: never Substance use type: does not use Living arrangements: with family Occupation/Education: student Gender identity (if verbalized by the patient): Female Sexual Orientation (if Verbalized by the Patient): Straight or Heterosexual Spiritual care concerns: No Exam Narrative: GENERAL: Well-appearing, well-nourished, and in no acute distress. HEAD: Normocephalic, atraumatic. EYES: PERRLA and EOMI. ENT: Nares clear, no rhinorrhea or epistaxis. Mucous membranes moist. NECK: Supple. CHEST: Clear to auscultation. No respiratory distress. HEART: Regular rate and rhythm. ABDOMEN: Soft, mild tenderness lower abdomen, no guarding or rebound EXTREMITIES: Normal range of motion. No edema. SKIN: Warm, dry, no rash. NEURO: No focal deficits. Alert and oriented x3. PSYCH: Normal mood and affect. Course Vital Signs Vital signs: Vital Signs Temperature 98.4 F 03/11/23 11:47 Pulse Rate 107 H 03/11/23 11:47 Respiratory Rate 16 03/11/23 11:47 Blood Pressure 136/71 03/11/23 11:47 Pulse Oximetry 100 03/11/23 11:47 Oxygen Delivery Room Air 03/11/23 11:47 Temperature 98.4 F 03/11/23 11:47 Pulse Rate 88 03/11/23 14:25 Respiratory Rate 16 03/11/23 14:25 Blood Pressure 110/74 03/11/23 14:25 Pulse Oximetry 99 03/11/23 14:25 Oxygen Delivery Room Air 03/11/23 11:47 MDM - Female Genitourinary MDM Narrative Medical decision making narrative: Patient is a 22-year-old female presenting with vaginal bleeding in the setting of a positive test. Patient mildly tachycardic, otherwise vitals are within normal limits. Exam is remarkable for the above. Plan for labs, ultrasound, pain control. Blood work with leukocytosis and mild anemia. BMP is unremarkable. UA is indicative of infection. Patient given a dose of Keflex. Pelvic ultrasound shows a single living intrauterine gestation, age of approximately 5 weeks and 5 days. Consistent with last menstrual period. Patient updated on results. State
[2023-03-11 12:12] VITALS: BP 133/73; PULSE 94
[2023-03-11 12:13] VITALS: BP 120/75; PULSE 83
[2023-03-11 12:14] VITALS: BP 124/78; PULSE 100
--- NOTE | 2023-03-11 12:17 | PC.NURSE ---
Pt to US, given urine cup
[2023-03-11 12:35] LABS: Anion Gap 7 mmol/L (8-16); Basophils Absolute Auto 0.1 K/mm3 (0.0-0.1); Basophils Percent Auto 0.4 % (0.2-1.2); Blood Urea Nitrogen 8 mg/dL (7-17); Calcium 9.1 mg/dL (8.4-10.2); Carbon Dioxide 28 mmol/L (22-30); Chloride 100 mmol/L (98-107); Eosinophils Percent Auto 0.1 % (0-4.4); Estimated CRCL calculation 112 ml/min; Estimated Glomerular Filt Rate > 60; Glucose 100 mg/dL (65-110); Hematocrit 34.5 % (37.0-47.0); Hemoglobin 11.1 g/dL (12.0-15.0); Immature Granulocyte Absolute 0.06 K/mm3 (0.00-0.031); Immature Granulocyte Percent A 0.5 % (0-0.5); Lymphocytes Percent Auto 9.7 % (18.3-44.2); Mean Corpuscular HGB Conc 32.2 g/dl (32-36); Mean Corpuscular Hemoglobin 27.3 pg (26-34); Monocytes Absolute Auto 1.1 K/mm3 (0.1-0.6); Monocytes Percent Auto 8.8 % (2.6-8.5); Neutrophils Absolute Auto 9.9 K/mm3 (1.3-6.7); Neutrophils Percent Auto 80.5 % (45.5-73.1); Platelet Count Result 266 k/mm3 (150-375); Potassium 3.8 mmol/L (3.4-5.0); Red Blood Count 4.06 M/mm3 (4.2-5.4); Red Cell Distribution Width 15.7 % (11.5-14.5); Sodium 135 mmol/L (137-145); White Blood Count 12.3 K/mm3 (4.5-10.0)
[2023-03-11] MEDS: SODIUM CHLORIDE 0.9% IV 1,000 ML 999 ML IV CONT (12:58)
[2023-03-11 13:20] LABS: Appearance Urine Turbid (Clear); Bacteria Urine 4+ /hpf; Bilirubin Urine Negative (Negative); Blood Urine 3+ (Negative); Color Urine Yellow (Yellow); Glucose Urine UA Negative (Negative); Ketones Urine 4+ mg/dL (Negative); Leukocyte Esterase Ur 3+ LEU/UL (Negative); Nitrate Urine Positive (Negative); Non Pathogenic Casts 0-2; Protein Urine 2+ mg/dL (Negative); RBC Urine 51-100 /hpf (0-2); Specific Grav Ur 1.018 (1.001-1.035); Squamous Epithelial Cell Urine Few /hpf (Few); WBC Urine >100 /hpf
[2023-03-11 13:56] LABS: Add Urine Microscopic? YES
[2023-03-11] MEDS: CEPHALEXIN 500 MG CAPSULE PO (14:24)
[2023-03-11 14:25] VITALS: BP 110/74; PULSE 88; RESP 16; O2SAT 99
== END 2023-03-11 14:26 | disposition home or self-care (01) ==
PROVIDERS: Emergency Medicine; Emergency Provider Emergency Medicine
DX: O23.41 Unspecified infection of urinary tract in pregnancy, first trimester (principal); N39.0 Urinary tract infection, site not specified; O99.511 Diseases of the respiratory system complicating pregnancy, first trimester; J45.909 Unspecified asthma, uncomplicated; Z3A.01 Less than 8 weeks gestation of pregnancy
CPT/HCPCS: 36415; 76801; 76817; 80048; 81001; 81025; 84702; 85025; 85461; 86850; 86900; 86901; 87077; 87086; 87186; 96365; 99284; A9270; J0131; J7030

== ENCOUNTER 2023-04-20 22:31 | Observation (INO) | payer OTHER, MEDICAID, SELFPAY ==
--- NOTE | ~2023-04-20 | US_ITS ---
EXAMINATION: US pelvic complete DATE: 04/20/2023 23:33 INDICATION: Evaluate for retained products of conception Comparison:Ultrasound dated 03/11/2023 TECHNIQUE: Multiple transabdominal and endovaginal sonographic images of the pelvis performed. FINDINGS: The uterus measures 10.5 x 6 x 6 cm. The endometrial complex measures 3.4 cm. Endometrium i s heterogeneous with associated vascularity. The right ovary measures 3.3 x 2 x 2 cm with follicular changes. Left ovary is not visualized. There is no free fluid in the pelvis. There are no abnormal masses seen on either side. IMPRESSION: 1. Thickened heterogeneous endometrium measuring 3.4 cm with increased vascularity, compatible with r etained products of conception. Reviewed, dictated and finalized at location L. IMPRESSION: 1. Thickened heterogeneous endometrium measuring 3.4 cm with increased vascular ity, compatible with retained products of conception.
[2023-04-20 22:36] VITALS: BP 156/95; PULSE 92; RESP 22; TEMP 36.6; O2SAT 100
[2023-04-20 23:45] LABS: Basophils Percent Auto 0.2 % (0.2-1.2); Eosinophils Absolute Auto 0.1 K/mm3 (0-0.3); Eosinophils Percent Auto 0.7 % (0-4.4); Hematocrit 30.5 % (37.0-47.0); Immature Granulocyte Absolute 0.03 K/mm3 (0.00-0.031); Immature Granulocyte Percent A 0.2 % (0-0.5); Lymphocytes Absolute Auto 1.72 K/mm3 (0.9-3.2); Lymphocytes Percent Auto 14.1 % (18.3-44.2); Mean Corpuscular HGB Conc 32.8 g/dl (32-36); Mean Corpuscular Hemoglobin 28.2 pg (26-34); Mean Corpuscular Volume 85.9 fl (80-100); Mean Platelet Volume 9.3 fl (7.4-10.4); Monocytes Absolute Auto 0.6 K/mm3 (0.1-0.6); Monocytes Percent Auto 5.1 % (2.6-8.5); Neutrophils Absolute Auto 9.7 K/mm3 (1.3-6.7); Neutrophils Percent Auto 79.7 % (45.5-73.1); Platelet Count Result 211 k/mm3 (150-375); Red Blood Count 3.55 M/mm3 (4.2-5.4); White Blood Count 12.2 K/mm3 (4.5-10.0)
[2023-04-20] MEDS: MORPHINE SULFATE (*CRX) 4 MG/ML INJ (23:51)
[2023-04-20 23:56] LABS: Alanine Aminotransferase 15 U/L (6-35); Albumin Level 4.2 g/dL (3.5-5.1); Alkaline Phosphatase 46 U/L (38-126); Anion Gap 5 mmol/L (8-16); Aspartate Amino Transferase 31 U/L (14-36); Bilirubin,Total 0.5 mg/dL (0.2-1.3); Blood Urea Nitrogen 9 mg/dL (7-17); Calcium 8.9 mg/dL (8.4-10.2); Carbon Dioxide 26 mmol/L (22-30); Chloride 106 mmol/L (98-107); Estimated CRCL calculation 112 ml/min; Estimated Glomerular Filt Rate > 60; Glucose 102 mg/dL (65-110); Potassium 3.5 mmol/L (3.4-5.0); Sodium 137 mmol/L (137-145)
[2023-04-21] VITALS (13 sets, daily range): BP systolic 110–144; BP diastolic 62–119; PULSE 54–80; RESP 11–20; TEMP 36.4–37.4; O2SAT 97–100; BMI 25.5
[2023-04-21] MEDS: SODIUM CHLORIDE 0.9% IV 1,000 ML 999 ML IV CONT (00:14)
--- NOTE | 2023-04-21 00:59 | ED.GENADULT ---
HPI - General Adult General Chief complaint: Vaginal Bleeding Stated complaint: vaginal bleeding Time Seen by Provider: 04/21/23 00:00 History of Present Illness HPI narrative: Patient a 22-year-old female who presents the emergency department with chief complaint of abdominal pain and vaginal bleeding. The patient reports that she was currently and had had heavy vaginal bleeding that started over the weekend. The patient reports that she feels as though she has been miscarrying and reports that she has been going through about a pad an hour with the bleeding. Patient reports this is her second and reports that she sees Dr. Fu for her OB care. Related Data Home Medications Medication Instructions Recorded Confirmed ferrous sulfate 325 mg (65 mg 325 mg PO DAILY 08/29/21 01/27/22 iron) tablet (Iron (ferrous sulfate)) vit no.133-ferrous 1 tablet PO DAILY 08/29/21 01/27/22 fumarate 28 mg-folic acid 800 mcg tablet () Allergies Allergy/AdvReac Type Severity Reaction Status Date / Time No Known Allergies Allergy Unknown Unverified 03/11/23 11:51 Review of Systems Review of Systems: A 10 system review of systems was completed on the patient and is negative except for what is stated in the HPI. Nursing and ancillary documentation was reviewed. PMFSH Past Medical History Medical History Asthma No acute medical problems (normal spontaneous vaginal delivery) Seasonal allergies Family History Family History Mother Hypertension Father Cancer Grandparent Cancer Social History Social History Smoking status: Never smoker Alcohol intake: never Substance use: never Substance use type: does not use Living arrangements: with family Occupation/Education: student Gender identity (if verbalized by the patient): Female Sexual Orientation (if Verbalized by the Patient): Straight or Heterosexual Spiritual care concerns: No Exam Narrative: GENERAL: Well-appearing, well-nourished, and in no acute distress. HEAD: Normocephalic, atraumatic. EYES: PERRLA and EOMI. ENT: Nares clear, no rhinorrhea or epistaxis. Mucous membranes moist. NECK: Supple. CHEST: Clear to auscultation. No respiratory distress. HEART: Regular rate and rhythm. No murmur heard. Normal peripheral pulses. ABDOMEN: Soft, nontender, nondistended, normal active bowel sounds. : Large amount of clot in the vaginal vault cervix was closed with scant blood from the cervix EXTREMITIES: Normal range of motion. No edema. SKIN: Warm, dry, no rash. NEURO: No focal deficits. Alert and oriented x3. PSYCH: Normal mood and affect. Course Vital Signs Vital signs: Vital Signs Temperature 36.6 C 04/20/23 22:36 Pulse Rate 92 04/20/23 22:36 Respiratory Rate 22 H 04/20/23 22:36 Blood Pressure 156/95 H 04/20/23 22:36 Pulse Oximetry 100 04/20/23 22:36 Oxygen Delivery Room Air 04/20/23 22:36 Temperature 36.6 C 04/20/23 22:36 Pulse Rate 75 04/21/23 00:04 Respiratory Rate 14 04/21/23 00:04 Blood Pressure 144/119 H 04/21/23 00:04 Pulse Oximetry 97 04/21/23 00:04 Oxygen Delivery Room Air 04/20/23 22:36 Medical Decision Making MDM Narrative Medical decision making narrative: Differential diagnosis includes missed , retained products of conception, Laboratory studies were obtained which showed a CBC with a hemoglobin of 10.0 the patient was 11.1 earlier this month Prior ultrasound was reviewed which showed a 5-week intrauterine Ultrasound today showed thickened vascular endometrial complex consistent with retained products of conception Patient's hCG was 9357 Patient is AB+ Due to the large amount of clot in the vaginal vault that
[2023-04-21 02:13] LABS: Appearance Urine Clear (Clear); Bilirubin Urine Negative (Negative); Blood Urine 3+ (Negative); Color Urine Yellow (Yellow); Glucose Urine UA Negative (Negative); Ketones Urine Trace mg/dL (Negative); Leukocyte Esterase Ur Trace LEU/UL (Negative); Nitrate Urine Negative (Negative); Non Pathogenic Casts 0-2; Protein Urine 1+ mg/dL (Negative); RBC Urine >100 /hpf (0-2); Specific Grav Ur 1.017 (1.001-1.035); Squamous Epithelial Cell Urine None seen /hpf (Few); Urobilinogen Urine 0.2 mg/dL (<2.0)
[2023-04-21 02:26] LABS: Bacteria Urine None Seen /hpf
[2023-04-21 02:36] LABS: Add Urine Microscopic? YES
[2023-04-21] MEDS: SODIUM CHLORIDE 0.9% IV 1,000 ML 125 ML IV CONT ×2 (03:23→11:47)
--- NOTE | 2023-04-21 04:34 | ADMGEN ---
This patient, Tia Olivares, was admitted to [facility] Surg Room 327-01. Patient/family oriented to hospital policies and general routines including ID bracelet, bed and alarms, visiting hours, pain management, procedures, bathroom and other care routines, personal items, smoking policy, room service/diet, and visiting hours. Information on how to activate the Rapid Response Team has been discussed. Patient/Family are encouraged to report perceived risks to care and to ask questions if they do not understand what they are told or what they should do.
--- NOTE | 2023-04-21 05:49 | PM.IMHP ---
H&P: HPI History of Present Illness Date/Time: 04/21/23 05:49 Chief Complaint: incomplete AP Narrative: this is a 22-year-old female with an incomplete a be approved by ultrasound. She had rising quantitative HCGs but this morning with heavy bleeding and retained products conception seen on ultrasound she is scheduled for suction dilatation curettage risks and benefits reviewed PMFSH Past Medical History Medical History Asthma No acute medical problems (normal spontaneous vaginal delivery) Seasonal allergies Family History Family History Mother Hypertension Father Cancer Grandparent Cancer Social History Social History Smoking status: Never smoker Alcohol intake: never Drinks per week: 1 Substance use: never Substance use type: does not use Lack of Transportation: No Lack of Food: Never True Current Housing: I Have Housing Concerned About Future Housing: No Difficulty Paying Gas/Electric Bills: No Difficulty Paying for Meds: No Currently Unemployed: No Education: High School Diploma/GED Difficulty w/ Childcare or Family Care: No Living arrangements: with family Occupation/Education: student Gender identity (if verbalized by the patient): Female Sexual Orientation (if Verbalized by the Patient): Straight or Heterosexual Spiritual care concerns: No Meds Home Medications and Allergies Allergies Allergy/AdvReac Type Severity Reaction Status Date / Time No Known Allergies Allergy Unknown Unverified 03/11/23 11:51 Vital Signs Vital Signs - 24 hr 04/20/23 22:36 04/21/23 00:04 04/21/23 01:00 Temperature 98 F Pulse Rate 92 75 80 Respiratory Rate 22 H 14 19 Blood Pressure 156/95 H 144/119 H 123/87 Pulse Oximetry 100 97 97 Oxygen Delivery Room Air 04/21/23 03:55 04/21/23 02:00 04/21/23 04:30 Temperature Pulse Rate 80 74 80 Respiratory Rate 19 20 19 Blood Pressure 136/77 139/87 Pulse Oximetry 99 98 99 Oxygen Delivery Room Air 04/21/23 04:34 Temperature 97.8 F Pulse Rate 60 Respiratory Rate 16 Blood Pressure 110/62 Pulse Oximetry 100 Oxygen Delivery Exam Const: General: cooperative, healthy appearing and comfortable Nutritional Appearance: average body habitus Orientation/consciousness: oriented to person, oriented to place and oriented to time HENMT: Head: normal to inspection Resp: Effort & Inspection: normal respiratory effort Cardio: Rate: regular rate Rhythm: regular rhythm Heart sounds: S1 normal heart sound present and S2 normal heart sound present GI: Inspection: normal to inspection : External Female Exam: normal external appearance Speculum Exam - Vagina: normal appearance of the vagina and vaginal bleeding Speculum Exam - Cervix: Cervical os closed Bimanual exam- vagina & uterus: enlarged Bimanual Exam- Adnexa, other: normal adnexae H&P: Results Labs Labs: Short CBC 04/20/23 Range/Units 23:39 WBC 12.2 H (4.5-10.0) K/mm3 Hgb 10.0 L (12.0-15.0) g/dL Hct 30.5 L (37.0-47.0) % Plt Count 211 (150-375) k/mm3 BMP 04/20/23 23:39 Sodium 137 Potassium 3.5 Chloride 106 Carbon Dioxide 26 BUN 9 Creatinine 0.60 L Glucose 102 Calcium 8.9 Liver Function 04/20/23 Range/Units 23:39 Total Bilirubin 0.5 (0.2-1.3) mg/dL AST 31 (14-36) U/L ALT 15 (6-35) U/L Alkaline Phosphatase 46 (38-126) U/L Albumin 4.2 (3.5-5.1) g/dL Urine 04/21/23 Range/Units 02:02 Urine Color Yellow (Yellow) Urine Appearance Clear (Clear) Urine pH 6.0 (5.0-9.0) Ur Specific [place] 1.017 (1.001-1.035) Urine Protein 1+ H (Negative) mg/dL Urine Glucose (UA) Negative (Negative) mg/dL Assessment and Plan Assessment and plan (1) Incomplete : Cod
--- NOTE | 2023-04-21 07:52 | WPDHPUPDATE1 ---
History and Physical Update Update Date/Time: 04/21/23 07:52 History and Physical has been reviewed, including an updated exam of the patient. There are NO changes in the patient's condition. Risks, benefits, and alternatives have been discussed and questions answered. Patient agrees to proceed with procedure.
--- NOTE | 2023-04-21 14:06 | WPDANESEPPF ---
Anes - Initial Pre Proc Eval Procedure: Operation Date: 04/21/23 16:00 Proposed Procedures p Suction Dilatation and Curettage - Adal Arthur MD Date/Time: 04/21/23 14:06 Surgeon: Adal Arthur MD Pre Op Diagnosis: Retained Products of Conception Patient Data Age: 22 Gender: F Height: 1.65 m Weight: 69.6 kg Last Vital Signs Temp 36.8 C 04/21/23 14:00 Pulse 62 04/21/23 14:00 Resp 16 04/21/23 14:00 BP 118/78 04/21/23 14:00 Pulse Ox 100 04/21/23 14:00 O2 Del Method Room Air 04/21/23 04:30 Allergies Allergy/AdvReac Type Severity Reaction Status Date / Time No Known Allergies Allergy Unknown Unverified 04/21/23 14:53 Home Medications Medication Instructions Recorded Confirmed Type hydrocodone 5 mg-acetaminophen 325 1 tablet PO Q4H PRN pain #14 tabs 04/21/23 Rx mg tablet Laboratory Tests 04/20/23 04/21/23 23:39 02:02 WBC 12.2 H K/mm3 (4.5-10.0) RBC 3.55 L M/mm3 (4.2-5.4) Hgb 10.0 L g/dL (12.0-15.0) Hct 30.5 L % (37.0-47.0) MCV 85.9 fl (80-100) MCH 28.2 pg (26-34) MCHC 32.8 g/dl (32-36) RDW 16.0 H % (11.5-14.5) Plt Count 211 k/mm3 (150-375) MPV 9.3 fl (7.4-10.4) Immature Gran % (Auto) 0.2 % (0-0.5) Neut % (Auto) 79.7 H % (45.5-73.1) Lymph % (Auto) 14.1 L % (18.3-44.2) [place] % (Auto) 5.1 % (2.6-8.5) Eos % (Auto) 0.7 % (0-4.4) Baso % (Auto) 0.2 % (0.2-1.2) Lymph # (Auto) 1.72 K/mm3 (0.9-3.2) [place] # (Auto) 0.6 K/mm3 (0.1-0.6) Eos # (Auto) 0.1 K/mm3 (0-0.3) Baso # (Auto) 0.0 K/mm3 (0.0-0.1) Abs Immat Gran (auto) 0.03 K/mm3 (0.00-0.031) Absolute Neuts (auto) 9.7 H K/mm3 (1.3-6.7) Absolute Nucleated RBC 0.0 K/mm3 (0.0-0.012) Nucleated RBC % 0.0 % (0.0-0.2) Sodium 137 mmol/L (137-145) Potassium 3.5 mmol/L (3.4-5.0) Chloride 106 mmol/L (98-107) Carbon Dioxide 26 mmol/L (22-30) Anion Gap 5 L mmol/L (8-16) BUN 9 mg/dL (7-17) Creatinine 0.60 L mg/dL (0.7-1.0) Estim Creat Clear Calc 112 ml/min Estimated GFR > 60 (59 - ) Glucose 102 mg/dL (65-110) Calcium 8.9 mg/dL (8.4-10.2) Total Bilirubin 0.5 mg/dL (0.2-1.3) AST 31 U/L (14-36) ALT 15 U/L (6-35) Alkaline Phosphatase 46 U/L (38-126) Total Protein 8.0 g/dL (6.3-8.2) Albumin 4.2 g/dL (3.5-5.1) Beta HCG, Quant 9357.70 mIU/ML Urine Color Yellow (Yellow) Urine Appearance Clear (Clear) Urine pH 6.0 (5.0-9.0) Ur Specific [place] 1.017 (1.001-1.035) Urine Protein 1+ H mg/dL (Negative) Urine Glucose (UA) Negative mg/dL (Negative) Urine Ketones Trace H mg/dL (Negative) Ur Blood (Man) 3+ H (Negative) Urine Nitrate Negative (Negative) Urine Bilirubin Negative (Negative) Urine Urobilinogen 0.2 mg/dL (<2.0) Leukocyte Esterase Rfl Trace H EDNA/UL (Negative) Urine RBC >100 H /hpf (0-2) Urine WBC 6-10 H /hpf Ur Squamous Epith Cells None seen /hpf (Few) Urine Bacteria None seen /hpf Urine Casts 0-2 Blood Type AB Positive Antibody Screen Negative Screen TNP Baby's Blood Type Not Reportable Baby's [place] Not Reportable Doses of RhIg Required 0 Patient hx anesthesia problems: none Family hx anesthesia problems: none Results Review: All pre-operative results and documents have been reviewed as part of the pre-operative evaluation. [facility] Past Medical History Medical History Asthma No acute medical problems (normal spontaneous vaginal delivery) Seasonal allergies Family Hist
[2023-04-21] MEDS: LACTATED RINGERS 1,000 ML 30 ML IV CONT (14:45)
[2023-04-21] MEDS: LIDOCAINE HCL 1% LOCAL INJ 20 ML VIAL 10 ML INFILTRATE (16:31)
--- NOTE | 2023-04-21 16:40 | W.PM.PROC2 ---
Procedure Note - Detailed Date of Procedure 04/21/23 Pre-op Diagnosis Retained Products of Conception Post-op Diagnosis Same Procedure Performed Suction dilatation curettage Surgeon Adal Arthur MD Anesthesia MAC and Local Indications this is a 22-year-old female with retained products conception following an incomplete miscarriage Findings products conception. Uterus sounded 10 Description of Procedure patient was prepped draped sterile fashion placed in dorsal lithotomy position. Under excellent IV sedation weighted speculum placed. Anterior cervix grasped with single-tooth 2.5cc 1% xylocaine anesthesia placed at 2, 4, 8, 10:00 a.m. of the cervix. Sounded to 10. Serial dilatation with fragmented dilators performed followed by passage of the 10. Suction curette. A moderate amount of tissue was removed. Once a good grating sound was heard, the instruments removed and accounted for. Patient was awakened went to recovery in satisfactory condition. All sponge, needle, instrument counts were correct. There were no immediate complications. She did not require RhoGAM as she is Rh positive Estimated Blood Loss 50 Urine Output 0 Drains No Packing No Pathology Yes Complications No immediate complications Condition Stable Disposition PACU
[2023-04-21] MEDS: fentaNYL CITRATE INJ (*CRX) 100 MCG/2 ML VIAL 25 MCG IV PUSH (17:02)
--- NOTE | 2023-04-25 05:11 | PM.DS ---
DS: Admitting Diagnosis Discharge Date 04/21/23 Admitting Diagnosis Incomplete AB DS: Discharge Diagnosis Discharge Diagnosis (1) Incomplete : Code(s): O03.4 - Incomplete spontaneous without complication Status: Acute (2) Retained products of conception: Status: Acute DS: Summary Hospital Course Reason for hospitalization: vaginal bleeding Hospital Course: patient was admitted with vaginal bleeding and ultrasound showed retained products of conception. She underwent suction D&C. Her hospital course thereafter was she afebrile. She was up, voiding difficulty eating regular diet, ambulating, generally without complaints. Time Spent with Patient Time attestation: Total time spent providing and/or coordinating discharge services: Exam Const: General: cooperative, healthy appearing and comfortable Nutritional Appearance: average body habitus Orientation/consciousness: oriented to person, oriented to place and oriented to time HENMT: Head: normal to inspection Resp: Effort & Inspection: normal respiratory effort Cardio: Rate: regular rate Rhythm: regular rhythm Heart sounds: S1 normal heart sound present and S2 normal heart sound present GI: Inspection: normal to inspection DS: Data Data Completed and Pending Completed studies during hospitalization: Pending at discharge 04/21/23 16:41 Surgical [PTH] Routine Discharge Plan Discharge Attending physician on discharge: Adal Solis Consulting providers: Donavon Wan; Aquilino Eden Discharging Clinician: Adal Solis Patient Disposition: Home, Self-Care Activity: may shower, no straining and pelvic rest Diet: heart healthy Wound Care Instructions: follow printed instructions Patient Instructions: Antibiotic Form Stand Alone Forms: General Discharge Information Follow-up/Referrals: Adal Solis MD [Physician] - Discharge Medications: New hydrocodone-acetaminophen 5-325 mg tablet 1 tablet PO Q4H PRN (Reason: pain) Qty: 14 0RF Date of admission: 04/21/23 02:28 Primary Care Provider: Christiano Fu Admitting Provider: Adal Solis Attending physician on admission: Adal Solis Condition: Stable
== END 2023-04-21 18:40 | disposition home or self-care (01) ==
LOC: ANHED 04-21 02:40 → ANH3MEDSUR 04-21 03:23
PROVIDERS: Admitting Provider Obstetrics & Gynecology; Emergency Provider Emergency Medicine; PCP Obstetrics & Gynecology; Visit Provider Obstetrics & Gynecology
PROC: (CPT 59812; principal; 2023-04-21 16:00)
DX: O03.4 Incomplete spontaneous abortion without complication (principal); R10.9 Unspecified abdominal pain
CPT/HCPCS: 59812; 36415; 76856; 80053; 81001; 84702; 85025; 85461; 86850; 86900; 86901; 87086; 87088; 88305; 96361; 96374; 99285; G0378; J2250; J2270; J2704; J3010; J7030; J7120

== ENCOUNTER 2024-01-23 12:00 | Observation (INO) | payer OTHER, MEDICAID, SELFPAY ==
[2024-01-23 12:23] VITALS: BP 118/66; PULSE 75
[2024-01-23 12:30] VITALS: BP 115/65; PULSE 69
[2024-01-23 12:50] VITALS: BMI 25.0
--- NOTE | 2024-01-23 12:51 | OBADM ---
This patient, Tia Olivares, admitted to the OB room OB Post 115 for observation. Patient/family oriented to hospital policies and general routines including ID bracelet, bed and alarms, visiting hours, pain management, procedures, bathroom and other care routines, personal items, smoking policy, room service/diet, and visiting hours. Patient/Family are encouraged to report perceived risks to care and to ask questions if they do not understand what they are told or what they should do.
[2024-01-23 12:54] LABS: Appearance Urine Clear (Clear); Bacteria Urine None Seen /hpf; Bilirubin Urine Negative (Negative); Blood Urine 1+ (Negative); Color Urine Yellow (Yellow); Glucose Urine UA Negative (Negative); Ketones Urine Negative (Negative); Leukocyte Esterase Ur Negative LEU/UL (Negative); Nitrate Urine Negative (Negative); Non Pathogenic Casts 0-2; Protein Urine Negative (Negative); Specific Grav Ur 1.016 (1.001-1.035); Squamous Epithelial Cell Urine None Seen /hpf (Few); Urobilinogen Urine 0.2 mg/dL (<2.0); WBC Urine 0-5 /hpf (0-3); pH Urine 6.5 (5.0-9.0)
[2024-01-23 12:56] LABS: Add Urine Microscopic? YES
[2024-01-23 13:00] VITALS: BP 117/62; PULSE 84
--- NOTE | 2024-01-25 08:05 | PM.OBTRLD ---
OB - Triage/Final Diagnosis Visit Information Reason for evaluation: threatened labor Comments/Additional reasons for admission: I have assessed the risk for this patient, Tia Olivares, and determined that she would benefit from observation care. Evaluation Laboratory results: Laboratory Tests 01/23/24 12:26 Urine Color Yellow Urine Appearance Clear Urine pH 6.5 Ur Specific [place] 1.016 Urine Protein Negative Urine Glucose (UA) Negative Urine Ketones Negative Ur Blood (Man) 1+ H Urine Nitrate Negative Urine Bilirubin Negative Urine Urobilinogen 0.2 Leukocyte Esterase Rfl Negative Urine RBC 11-20 H Urine WBC 0-5 Ur Squamous Epith Cells None seen Urine Bacteria None seen Urine Casts 0-2
== END 2024-01-23 13:15 | disposition home or self-care (01) ==
PROVIDERS: Admitting Provider Student in an Organized Health Care Education/Training Program; PCP Obstetrics & Gynecology; Visit Provider Student in an Organized Health Care Education/Training Program
DX: O47.02 False labor before 37 completed weeks of gestation, second trimester (principal); Z3A.19 19 weeks gestation of pregnancy
CPT/HCPCS: G0378; G0379

== ENCOUNTER 2024-05-11 10:21 | Outpatient (CLI) | payer OTHER, MEDICAID, SELFPAY ==
--- NOTE | ~2024-05-11 | US_ITS ---
EXAMINATION: US OB follow up DATE: 05/11/2024 11:48 INDICATION: Encounter for supervision of normal during third trimester. Assess growth and amniotic fluid index. TECHNIQUE: Real-time ultrasound of the pelvis was performed. The interpreting radiologist was not pre sent for the study. COMPARISON: 02/06/2024 FINDINGS: There is a single living fetus in vertex presentation. The placenta is posterior and not low-lying. heart rate is 130 beats per minute (bpm). The amniotic fluid index is 9.8 cm, which is normal. (5th%-95%: 7.9-84.9 cm at 35 weeks estimated gestational age). The following biometric data were obtained: BPD: 8.5 cm -> 34 weeks 1 days Head circumference: 30.5 cm -> 33 weeks 6 days Abdominal circumference: 60.7 cm -> 34 weeks 5 days Femur length: 6.6 cm -> 34 weeks 1 days These measurements are concordant. Head circumference to abdominal circumference ratio: 0.99 (normal range 0.94-1.11). Estimated weight: 2412 g (+/-) 362 g or 5 lbs. 5 oz. (+/-) 13 oz. IMPRESSION: 1. Single living fetus in vertex presentation with heart rate of 130 bpm. 2. Gestational age by ultrasound of 34 weeks 2 day(s) +/- 2 week(s) 3 day(s) with ultrasound estimate d date of delivery (BONY) of 06/20/2024. Estimated weight is 26th percentile by Hadlock criteria when 06/14/2024 is used as the BONY. Please correlate with clinical information or earlier ultrasounds f or most accurate BONY. 3. Normal amniotic fluid index of 9.8 cm. Reviewed, dictated and finalized at location B. IMPRESSION: 1. Single living fetus in vertex presentation with heart rate of 130 bpm. 2. Gestational age by ultrasound of 34 weeks 2 day(s) +/- 2 week(s) 3 day(s) wi th ultrasound estimated date of delivery (BONY) of 06/20/2024. Estimated we ight is 26th percentile by Hadlock criteria when 06/14/2024 is used as the BONY. P lease correlate with clinical information or earlier ultrasounds for most accur ate BONY. 3. Normal amniotic fluid index of 9.8 cm.
== END 2024-05-11 10:22 | disposition home or self-care (01) ==
PROVIDERS: PCP Obstetrics & Gynecology; Visit Provider Student in an Organized Health Care Education/Training Program
DX: Z34.93 Encounter for supervision of normal pregnancy, unspecified, third trimester (principal); Z3A.34 34 weeks gestation of pregnancy
CPT/HCPCS: 76816

== ENCOUNTER 2024-06-01 14:19 | Outpatient (CLI) | payer OTHER, MEDICAID, SELFPAY ==
[2024-06-01 14:59] VITALS: BP 129/80; PULSE 83
[2024-06-01 15:15] VITALS: BP 114/68; PULSE 68
[2024-06-01 15:17] LABS: Basophils Percent Auto 0.1 % (0.2-1.2); Eosinophils Percent Auto 0.2 % (0-4.4); Hematocrit 31.6 % (37.0-47.0); Immature Granulocyte Absolute 0.06 K/mm3 (0.00-0.031); Immature Granulocyte Percent A 0.6 % (0-0.5); Lymphocytes Absolute Auto 1.21 K/mm3 (0.9-3.2); Lymphocytes Percent Auto 12.8 % (18.3-44.2); Mean Corpuscular HGB Conc 31.6 g/dl (32-36); Mean Corpuscular Hemoglobin 28.1 pg (26-34); Mean Corpuscular Volume 88.8 fl (80-100); Mean Platelet Volume 10.5 fl (7.4-10.4); Monocytes Absolute Auto 0.5 K/mm3 (0.1-0.6); Monocytes Percent Auto 5.3 % (2.6-8.5); Neutrophils Absolute Auto 7.7 K/mm3 (1.3-6.7); Platelet Count Result 163 k/mm3 (150-375); Red Blood Count 3.56 M/mm3 (4.2-5.4); Red Cell Distribution Width 15.3 % (11.5-14.5); White Blood Count 9.5 K/mm3 (4.5-10.0)
[2024-06-01 15:28] LABS: Alanine Aminotransferase 13 U/L (6-35); Albumin Level 3.7 g/dL (3.5-5.1); Alkaline Phosphatase 173 U/L (38-126); Anion Gap 8 mmol/L (4-12); Aspartate Amino Transferase 29 U/L (14-36); Bilirubin,Total 0.7 mg/dL (0.2-1.3); Blood Urea Nitrogen 11 mg/dL (7-17); Carbon Dioxide 25 mmol/L (22-30); Chloride 104 mmol/L (98-107); Estimated Glomerular Filt Rate > 60; Glucose 95 mg/dL (65-110); Potassium 3.4 mmol/L (3.4-5.0); Sodium 137 mmol/L (137-145); Uric Acid 5.2 mg/dL (2.5-7.5)
[2024-06-01 15:30] VITALS: BP 111/67; PULSE 66
[2024-06-01 15:41] LABS: Creatinine Urine 261.2 mg/dL; Total Protein Urine Random 10 mg/dL; Ur Ttl Prot Creatinine Ratio 0.04 mg/mg (0-0.20)
[2024-06-01 15:44] LABS: Appearance Urine Cloudy (Clear); Bacteria Urine 4+ /hpf; Bilirubin Urine Negative (Negative); Blood Urine Negative (Negative); Color Urine Yellow (Yellow); Glucose Urine UA Negative (Negative); Ketones Urine Trace mg/dL (Negative); Leukocyte Esterase Ur 1+ LEU/UL (Negative); Need Manual Microscopic Reviewed; Nitrate Urine Negative (Negative); Non Pathogenic Casts 0-2; Protein Urine Trace mg/dL (Negative); RBC Urine 0-2 /hpf (0-2); Specific Grav Ur 1.023 (1.001-1.035); Squamous Epithelial Cell Urine Many /hpf (Few)
[2024-06-01 15:45] VITALS: BP 110/70; PULSE 73
--- NOTE | 2024-06-01 15:46 | PC.NURSE ---
called Dr Schmid reported BP and PIH lab result. discharge order received
[2024-06-01 15:48] LABS: Add Urine Microscopic? YES
[2024-06-01 16:00] VITALS: BP 129/80; PULSE 77
== END 2024-06-01 16:10 | disposition home or self-care (01) ==
LOC: ANHOBOP 14:44 → ANHOBPP 14:45
PROVIDERS: Visit Provider Student in an Organized Health Care Education/Training Program
DX: O13.9 Gestational [pregnancy-induced] hypertension without significant proteinuria, unspecified trimester (principal); Z3A.00 Weeks of gestation of pregnancy not specified
CPT/HCPCS: 36415; 59025; 80053; 81001; 82570; 84156; 84550; 85025; 87086; 99199

== ENCOUNTER 2024-06-13 06:19 | Inpatient (IN) | payer OTHER, MEDICAID, SELFPAY ==
[2024-06-13] VITALS (131 sets, daily range): BP systolic 107–166; BP diastolic 43–111; PULSE 31–150; RESP 16; TEMP 36.3–36.5; O2SAT 87–100; BMI 31.5
[2024-06-13 06:59] LABS: Basophils Percent Auto 0.3 % (0.2-1.2); Eosinophils Percent Auto 0.5 % (0-4.4); Hematocrit 32.3 % (37.0-47.0); Hemoglobin 10.5 g/dL (12.0-15.0); Immature Granulocyte Absolute 0.07 K/mm3 (0.00-0.031); Immature Granulocyte Percent A 0.9 % (0-0.5); Lymphocytes Absolute Auto 1.89 K/mm3 (0.9-3.2); Lymphocytes Percent Auto 25.4 % (18.3-44.2); Mean Corpuscular HGB Conc 32.5 g/dl (32-36); Mean Corpuscular Hemoglobin 28.4 pg (26-34); Mean Corpuscular Volume 87.3 fl (80-100); Mean Platelet Volume 10.5 fl (7.4-10.4); Monocytes Absolute Auto 0.7 K/mm3 (0.1-0.6); Monocytes Percent Auto 8.7 % (2.6-8.5); Neutrophils Absolute Auto 4.8 K/mm3 (1.3-6.7); Neutrophils Percent Auto 64.2 % (45.5-73.1); Platelet Count Result 170 k/mm3 (150-375); White Blood Count 7.4 K/mm3 (4.5-10.0)
[2024-06-13] MEDS: LACTATED RINGERS 1,000 ML 999 ML IV CONT ×2 (07:12→17:53)
[2024-06-13] MEDS: miSOPROStol 25 MCG TABLET VAGINAL (07:20)
--- NOTE | 2024-06-13 07:35 | LDADM ---
This patient, Tia Olivares, was admitted to Labor/Delivery/Recovery 107 on 06/13/24 at 06:19. Plans for labor, pain management and were discussed with patient. Patient/family oriented to hospital policies and general routines including ID bracelet, bed and alarms, visiting hours, pain management, procedures, bathroom and other care routines, personal items, smoking policy, room service/diet and guest tray routines, security routines, and visiting hours. Patient/Family are encouraged to report perceived risks to care and to ask questions if they do not understand what they are told or what they should do. See OBIX for further documentation.
[2024-06-13 08:08] LABS: HIV 1/2 Ab P24 Ag Result Negative (Negative)
[2024-06-13 08:18] LABS: Rapid Plasma Reagin Non-Reactive (NonReactive)
[2024-06-13] MEDS: miSOPROStol 25 MCG TABLET 50 MCG BUCCAL (11:38)
--- NOTE | 2024-06-13 14:33 | WPDHPUPDATE1 ---
History and Physical Update Update Date/Time: 06/13/24 14:33 23 yo who presents at 39w6d for elective IOL. Her has been uncomplicated thus far History and Physical has been reviewed, including an updated exam of the patient. There are NO changes in the patient's condition. Risks, benefits, and alternatives have been discussed and questions answered. Patient agrees to proceed with procedure. A/P: admit to L and D Routine admission orders labs reviewed Rh positive GBS negative Will plan for Cytotec induction of labor Continuous external monitoring May have epidural if desired
--- NOTE | 2024-06-13 14:37 | WPDANESEPP ---
Anes - Eval Pre Procedure Procedure: labor epidural Date/Time: 06/13/24 14:37 Surgeon: ami Preop Diagnosis: pain during labor Pre Op Diagnosis: IOL Patient Data Age: 23 Gender: F Height: 1.65 m Weight: 86 kg Last Vital Signs Temp 36.5 C 06/13/24 07:00 Pulse 63 06/13/24 14:01 BP 133/78 06/13/24 14:01 O2 Del Method Room Air 06/13/24 07:32 Allergies Allergy/AdvReac Type Severity Reaction Status Date / Time No Known Allergies Allergy Unknown Verified 06/08/24 13:32 Home Medications Medication Instructions Recorded Confirmed Type vitamins-iron fumarate 65 1 tablet PO DAILY 01/26/24 06/13/24 History mg iron-folic acid 1 mg tablet triamcinolone acetonide 0.025 % 1 applic topical BID #60 mL 05/31/24 06/13/24 Rx lotion Laboratory Tests 06/13/24 06:50 WBC 7.4 K/mm3 (4.5-10.0) RBC 3.70 L M/mm3 (4.2-5.4) Hgb 10.5 L g/dL (12.0-15.0) Hct 32.3 L % (37.0-47.0) MCV 87.3 fl (80-100) MCH 28.4 pg (26-34) MCHC 32.5 g/dl (32-36) RDW 16.0 H % (11.5-14.5) Plt Count 170 k/mm3 (150-375) MPV 10.5 H fl (7.4-10.4) Immature Gran % (Auto) 0.9 H % (0-0.5) Neut % (Auto) 64.2 % (45.5-73.1) Lymph % (Auto) 25.4 % (18.3-44.2) [place] % (Auto) 8.7 H % (2.6-8.5) Eos % (Auto) 0.5 % (0-4.4) Baso % (Auto) 0.3 % (0.2-1.2) Lymph # (Auto) 1.89 K/mm3 (0.9-3.2) [place] # (Auto) 0.7 H K/mm3 (0.1-0.6) Eos # (Auto) 0.0 K/mm3 (0-0.3) Baso # (Auto) 0.0 K/mm3 (0.0-0.1) Abs Immat Gran (auto) 0.07 H K/mm3 (0.00-0.031) Absolute Neuts (auto) 4.8 K/mm3 (1.3-6.7) Absolute Nucleated RBC 0.000 K/mm3 (0.0-0.012) Nucleated RBC % 0.0 % (0.0-0.2) RPR Non-reactive (NonReactive) HIV 1&2 Ab/P24 Ag 4thGn Negative (Negative) Blood Type AB Positive Antibody Screen Negative Patient hx anesthesia problems: none Family hx anesthesia problems: none Results Review: All pre-operative results and documents have been reviewed as part of the pre-operative evaluation. [facility] Past Medical History Medical History Asthma No acute medical problems (normal spontaneous vaginal delivery) Seasonal allergies Suppression of menses Surgical History Surgical History History of hysteroscopy D & C 05/01 Family History Family History Mother Hypertension Father Cancer Grandparent Cancer Social History Social History Smoking status: Never smoker Second hand tobacco smoke exposure: No Alcohol intake: never Drinks per week: 1 Substance use: never Substance use type: does not use Do You Feel Safe in your Home?: Yes Lack of Transportation: No Lack of Food: Never True Current Housing: I Have Housing Concerned About Future Housing: No Difficulty Paying Gas/Electric Bills: No Difficulty Paying for Meds: No Currently Unemployed: No Education: High School Diploma/GED Difficulty w/ Childcare or Family Care: No Living arrangements: with family Occupation/Education: student Gender identity (if verbalized by the patient): Female Sexual Orientation (if Verbalized by the Patient): Straight or Heterosexual Spiritual care concerns: No Exam Day of Procedure 06/13/24 14:37
[2024-06-13] MEDS: AMPICILLIN 2 GM/NS 100 ML 2 GM/100 ML BAG IVPB (16:01)
[2024-06-13] MEDS: OXYTOCIN 30 UNITS/NS 500 ML 30 UNITS/500 ML BAG IV CONT (16:02)
[2024-06-13] MEDS: fentaNYL CITRATE INJ (*CRX) 100 MCG/2 ML VIAL IV PUSH (17:54)
[2024-06-13] MEDS: AMPICILLIN 1 GM/NS 50 ML 1 GM/50 ML BAG IVPB (19:57)
--- NOTE | 2024-06-13 21:16 | PM.OBPRVD ---
OB - Vaginal Delivery Note Procedure Delivery date: 06/13/24 Induction method: Per Misoprostol Protocol Delivery augmentation: Pitocin Delivery monitor: External FHT and External Uterine Route of delivery: Episiotomy description: None Laceration Description: Superficial Delivery repair: vicryl Specimen: No Quantitative Blood Loss (ml): 200 Anesthesia type: Epidural Disposition: Floor Complications: No immediate complications Narrative: Patient pushed for a spontaneous vaginal delivery. The fetus was delivered atraumatically and placed on the maternal abdomen. The cord was clamped and cut after 1 minute of life. The cord was double clamped and cut and a segment of cord was collected for cord gases. Cord blood was collected for blood type and Coomb's testing. The placenta delivered spontaneously and was noted to be intact. The perineum was inspected and there were no lacerations noted. There were two superficial lacerations noted at the posterior fourchette. These lacerations were made hemostatic with 3-0 vicryl. Good hemostasis was noted. The uetrus was firm. [place] Baby Date of : 06/13/24 Time of : 21:04 Gestational Age by Date: 39 gender: Male presentation: vertex position: Right Occiput Anterior Placenta delivery description: Spontaneous Cord Vessel Description: 3 Vessels score one minute: 8 score five minutes: 9
[2024-06-13] MEDS: OXYTOCIN 30 UNITS/NS 500 ML 30 UNITS/500 ML BAG 125 UNITS IV CONT (21:41)
[2024-06-14] MEDS: ACETAMINOPHEN 325 MG TABLET 650 MG PO ×3 (01:12→16:28)
[2024-06-14] MEDS: IBUPROFEN 600 MG TABLET PO ×3 (01:12→16:29)
--- NOTE | 2024-06-14 01:37 | OBPPTRN ---
06/13/24 at 2321 Patient transferred to post room #292. Tia Lopez's mother is her support person and is present. Silvana oriented to unit, room, information board, rooming in, admission packet and security measures. Patient and her mother verbalizes understanding.
[2024-06-14 04:00] VITALS: BP 128/79; PULSE 62; RESP 16; TEMP 37
[2024-06-14 04:45] LABS: Hematocrit 29.8 % (37.0-47.0); Hemoglobin 9.5 g/dL (12.0-15.0)
[2024-06-14 07:50] VITALS: BP 110/58; PULSE 61; RESP 18; TEMP 37.5; O2SAT 100
[2024-06-14] MEDS: POLYSACCHARIDE IRON COMPLEX 150 MG CAPSULE PO ×2 (09:10→16:28)
[2024-06-14] MEDS: MULTIVIT/MIN/PREN/FOL AC/IRON TABLET 1 TAB PO (09:10)
[2024-06-14] MEDS: DOCUSATE SODIUM 100 MG CAPSULE PO (09:10)
--- NOTE | 2024-06-14 12:07 | WPDANESPN ---
Anes - Prog Note Post-Op Date/Time: 06/14/24 12:07 Cardiovascular status: normal Respiratory status: normal Airway patency: baseline Mental status: baseline Post-Op hydration status: normal Vital Signs: Last Vital Signs Temp 37.5 C 06/14/24 07:50 Pulse 61 06/14/24 07:50 Resp 18 06/14/24 07:50 BP 110/58 L 06/14/24 07:50 Pulse Ox 100 06/14/24 07:50 O2 Del Method Room Air 06/13/24 07:32 Pain Score (VAS): 0 I/O: Intake & Output 06/13/24 06/14/24 06/14/24 23:59 07:59 15:59 Intake Total 667.0 Output Total 1500 Balance -833.0 Laboratory Tests 06/14/24 03:44 06/14/24 03:44 Hgb 9.5 L Hct 29.8 L Post-procedural complaints: none Patient Feedback: Patient satisfied with anesthetic care.
[2024-06-14 12:19] VITALS: BP 128/57; PULSE 72; RESP 16; TEMP 36.9; O2SAT 100
--- NOTE | 2024-06-14 13:18 | PM.OBPNVD ---
OB - PN: Subj Subjective Date/time seen: 06/14/24 13:18 Patient comments: no complaints, pain well controlled and tolerating diet [place] feeding status: exclusively breast feeding Narrative: patient doing well this AM. No complaints. Pain is well controlled. She reports minimal bleeding. She is ambulating and voiding without difficulty. She is tolerating PO. She denies N/V, fever, chills. OB - PN: Obj Data Labs 06/14/24 03:44 Labs: Laboratory Results - last 24 hr 06/14/24 03:44 Hgb 9.5 L Hct 29.8 L OB - PN A/P Plan day: 1 Plan: routine care Comments: patient doing well H/H .04/06, asymptomatic. will continue iron supplementation VSS pt desires circumcision. Risks, benefits, alternatives discussed. Consent obtained. will proceed with infant circumcision continue routine care Time Spent With Patient Time: Total time spent is greater than 50% in coordination of care (as documented) at patient's floor/unit and/or counseling patient: Time with patient: less than 15 minutes Review of Systems Review of Systems: All systems reviewed & are unremarkable except as noted in HPI and below Exam Const: General: comfortable and no acute distress Resp: Effort & Inspection: normal respiratory effort Cardio: Rate: regular rate GI: GI Palp: Yes Soft to palpation and No Tenderness to palpation present (GI) Auscultation: normal bowel sounds Other: fundus firm and below umbilicus. Psych: Affect: normal affect
--- NOTE | 2024-06-14 15:30 | PC.NURSE ---
Consulted with mother to assess success and struggles. She already has contacted [facility] and has a breast pump at home. Mother says infant has been very sleepy today and she has struggled with latching him to the left breast since she gave a pacifier overnight. We unwrapped baby and changed his diaper. Discussed/demonstrated circ care with mother. Observed mother latching infant to the [left] breast in [cradle] position. It took several tries for to open his mouth wide enough to latch deeply. [was] able to maintain an appropriate latch. Mother [declines] nipple pain/discomfort [throughout feeding]. Encouraged mother to keep infant awake and nursing at the breast for 15 minutes. Mother taught to listen for swallowing during feedings. Reviewed using the blue feeding sheet to record time and duration of feeding. Mother voiced understanding of the education shared, to call for assistance if the infant does not latch or if there is discomfort with . Reported to the Primary RN.?
[2024-06-14 16:29] VITALS: BP 125/82; PULSE 59; RESP 16; TEMP 36.8; O2SAT 98
[2024-06-14 20:20] VITALS: BP 127/74; PULSE 65; RESP 18; TEMP 36.8
[2024-06-15] MEDS: ACETAMINOPHEN 325 MG TABLET 650 MG PO ×3 (00:36→14:00)
[2024-06-15] MEDS: IBUPROFEN 600 MG TABLET PO ×3 (00:36→13:59)
--- NOTE | 2024-06-15 04:26 | OBPPTRN ---
[id number]-Patient transferred to post room #290 via WC. Support person present. Oriented to unit, room, information board, rooming in, admission packet and security measures. Patient verbalizes understanding.
--- NOTE | 2024-06-15 04:27 | PC.NURSE ---
0400-Pt slept from 2350 until 0400 when this nurse went in to draw HH and to get pt using breast pump. Instructions on pump usage and frequency given. Pt started this pumping session at 0420
[2024-06-15 05:52] VITALS: BP 118/74; PULSE 79; RESP 16; TEMP 37.1; O2SAT 99
[2024-06-15 07:50] VITALS: BP 130/77; PULSE 57; RESP 16; TEMP 37.2; O2SAT 99
[2024-06-15] MEDS: MULTIVIT/MIN/PREN/FOL AC/IRON TABLET 1 TAB PO (07:56)
[2024-06-15] MEDS: DOCUSATE SODIUM 100 MG CAPSULE PO (07:56)
[2024-06-15] MEDS: POLYSACCHARIDE IRON COMPLEX 150 MG CAPSULE PO ×2 (07:56→17:47)
--- NOTE | 2024-06-15 08:10 | PM.OBDSVD ---
DS: Admitting Diagnosis Discharge Date Admitting Diagnosis intrauterine at term DS: Discharge Diagnosis Discharge Diagnosis (1) (normal spontaneous vaginal delivery): Code(s): O80 - Encounter for full-term uncomplicated delivery Status: Acute OB - DS: Summary OB Procedures : None OB Procedures Intrapartum: Spontaneous Vag Delivery OB Procedures: : None Peripartum Data Infant Delivery Method: Natural Vaginal Laceration Description: Superficial Episiotomy description: None complications: none Status at Discharge Functional status at discharge: independent ambulation Overall status at discharge: patient is back to baseline Time Spent with Patient Time attestation: Total time spent providing and/or coordinating discharge services: Time spent: Less than 30 minutes Exam Const: General: comfortable and no acute distress Resp: Effort & Inspection: normal respiratory effort Auscultation: clear to auscultation bilaterally Cardio: Rate: regular rate GI: GI Palp: Yes Soft to palpation Auscultation: normal bowel sounds Other: Fundus firm below umbilicus Psych: Appearance: grossly normal Mental Status: mental status grossly normal Affect: normal affect Discharge Plan Discharge Discharging Clinician: Bebeto Schmid Patient Disposition: Home, Self-Care Activity: as tolerated and pelvic rest Diet: regular Patient Instructions: Antibiotic Form Stand Alone Forms: General Discharge Information Follow-up/Referrals: Bebeto Schmid MD [Physician] - 4 Weeks Discharge Medications: New acetaminophen 500 mg tablet 500 mg PO Q6H PRN (Reason: pain) Qty: 30 0RF ibuprofen 600 mg tablet 600 mg PO Q6H PRN (Reason: pain) Qty: 30 0RF Continued vit-iron fum-folic ac 65 mg iron- 1 mg tablet 1 tablet PO DAILY triamcinolone acetonide 0.025 % lotion 1 applic topical BID Qty: 60 0RF Date of admission: 06/13/24 06:19 Primary Care Provider: UNKNOWN,DOCTOR Admitting Provider: Bebeto Schmid Attending physician on admission: Bebeto Schmid Condition: Stable
--- NOTE | 2024-06-15 10:20 | PC.NURSE ---
Consulted with mother concerning needs and she shared her ability to independently latch infant optimally without pain. Mother is feeding appropriately for growth of and understands stimulating to eat if needed. has had appropriate feedings in the last 24 hours meets the outcomes for weight, output, blood sugar and jaundice at this time. She says he seems sleepier at night and feeds better during the day. Reinforced understanding of milk production, transition of milk, signs of adequate intake, transition of stool, responsive watching for feeding cues, the different methods of stimulating infant to breastfeed 1-3 hours after the start of the last feeding, community resources, and when to call a provider using the resource of the feeding sheet along with the mom and baby guide. She has already been in contact with [facility] and has a breast pump for home use. Mother voiced understanding of the information shared, is confident to continue effectively her infant at home, when to call for assistance, denies any additional assistance or education at this time. Reported to the Primary RN.
[2024-06-16 11:32] VITALS: BP 126/71; PULSE 75; RESP 18; TEMP 37.2; O2SAT 99
== END 2024-06-15 19:10 | disposition home or self-care (01) | DRG 807 ==
LOC: ANHLDR 06:22 → ANHOB2 23:51
PROVIDERS: Admitting Provider Student in an Organized Health Care Education/Training Program; Visit Provider Student in an Organized Health Care Education/Training Program
DX: O99.824 Streptococcus B carrier state complicating childbirth (principal); Z37.0 Single live birth; Z3A.39 39 weeks gestation of pregnancy; O71.4 Obstetric high vaginal laceration alone
CPT/HCPCS: 36415; 85014; 85018; 85025; 86592; 86703; 86850; 86900; 86901; A9270; G0432; J0290; J2590; J2795; J3010; J7120

== ENCOUNTER 2025-09-13 10:14 | Observation (INO) | payer OTHER, MEDICAID, SELFPAY ==
[2025-09-13 10:38] VITALS: BP 139/77; PULSE 115
[2025-09-13 11:00] VITALS: BP 109/64; PULSE 109
[2025-09-13 11:43] LABS: Add Urine Microscopic? YES; Appearance Urine Clear (Clear); Glucose Urine UA Negative (Negative); Leukocyte Esterase Ur Trace LEU/UL (Negative); Nitrate Urine Negative (Negative); Non Pathogenic Casts 0-2; Specific Grav Ur 1.018 (1.001-1.035)
[2025-09-13] MEDS: TERBUTALINE SULFATE 1 MG/ML VIAL 0.25 MG SUB-Q (15:15)
--- NOTE | 2025-09-13 15:48 | OBADM ---
This patient, Tia Olivares, admitted to the OB room OB Post 117 for observation. Patient/family oriented to hospital policies and general routines including ID bracelet, bed and alarms, visiting hours, pain management, procedures, bathroom and other care routines, personal items, smoking policy, room service/diet, and visiting hours. Patient/Family are encouraged to report perceived risks to care and to ask questions if they do not understand what they are told or what they should do.
--- NOTE | 2025-09-14 07:50 | PM.OBTRLD ---
OB - Triage/Final Diagnosis Visit Information Date of evaluation: 09/13/25 Reason for evaluation: threatened labor Comments/Additional reasons for admission: I have assessed the risk for this patient, Tia Olivares, and determined that she would benefit from observation care. Evaluation Laboratory results: Laboratory Tests 09/13/25 11:17 Urine Color Yellow Urine Appearance Clear Urine pH 7.0 Ur Specific [place] 1.018 Urine Protein Trace Urine Glucose (UA) Negative Urine Ketones Trace H Ur Blood (Man) Negative Urine Nitrate Negative Urine Bilirubin Negative Urine Urobilinogen 0.2 Leukocyte Esterase Rfl Trace H Urine RBC 0-2 Urine WBC 0-5 Ur Squamous Epith Cells Few Urine Bacteria 1+ H Urine Casts 0-2 Vital signs: Vital Signs - 24 hr 09/13/25 10:38 09/13/25 11:00 Pulse Rate 115 H 109 H Blood Pressure 139/77 109/64
--- OUTSIDE RECORDS SUMMARY | 2025-09-14 10:07 | XMS_ITS | Clinical Summary ---
Author Organization [facility] Address [address] [place] [id number] Care Team Providers Care Pick Out Hand Name Role Phone Ashley Jordan MD Primary Care Provider [phone] Allergies No known active allergies Medications albuterol HFA (PROVENTIL HFA,VENTOLIN HFA,PROAIR HFA) 90 mcg/actuation inhalerIndicati ons:Acute cough,History of asthma Inhale 2 puffs every 6 (six) hours as needed for wheezing 1 each 02/02/2025 02/03/20 26 Active Active Problems No known active problems Social History Tobacco Use Types Packs/Day Years Used Date Smoking Tobacco: Never Comments Unknown Sex and Gender Information Value Date Recorded Sex Assigned at Not on file 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 Gender Identity Not on file Sexual Orientation Not on file Last Filed Vital Signs Vital Sign Reading Time Taken Comments Blood Pressure 130/82 02/02/2025 10:06 AM CDT Pulse 70 02/02/2025 10:06 AM CDT Temperature 37.1 C (98.7 F) 02/02/2025 10:06 AM CDT Respiratory Rate 20 02/02/2025 10:06 AM CDT Oxygen Saturation 98% 02/02/2025 10:06 AM CDT Inhaled Oxygen Concentration - - Weight 65.8 kg (145 lb) 02/02/2025 10:06 AM CDT Height 162.6 cm (5' 4) 04/09/2015 6:43 PM CDT Body Mass Index - - Plan of Treatment Health Maintenance Due Date Last Done Comments Cervical Cancer Screening 2000 Depression Screening 2000 Hepatitis C Screening 2000 Regular Well Visit/Exam 18-64 2018 DTaP/Tdap/Td Vaccine (7 - Td or Tdap) 07/13/2022 07/13/2012, 07/21/2006, 05/16/2002, Additional history exists Influenza Vaccine (#1) 2025 08/21/2005 Hepatitis B Screening Completed 06/11/2001 , 01/28/2001, 2000 Pneumococcal vaccine <65 Aged Out 001, 04/02/2001, 01/28/2001 No longer eligible based on patient's age to complete this topic Varicella Vaccines Completed 05/01/2010, 12/01/2001 HPV Vaccines Completed 02/28/2013, 10/10, 07/13/2012 Insurance [facility] CHOICE PLUS CHOICE PLUS Care Teams Pick Out Hand Relationship Specialty Start Date End Date Ashley Jodran MD [address] [place] [address] PCP - General 02/13/18
--- OUTSIDE RECORDS SUMMARY | 2025-09-14 10:07 | XMS_ITS | Clinical Summary ---
Author Organization [facility] Address [address] [place] [address] Phone Care Team Providers Care Pet Sitting Name Role Phone Unavailable Primary Care Provider Unavailabl e Social History Tobacco Use Types Packs/Day Years Used Date Smoking Tobacco: Never Assessed Comments Unknown Sex and Gender Information Value Date Recorded Sex Assigned at Not on file Legal Sex Female 10:15 AM CDT Gender Identity Not on file Sexual Orientation Not on file Plan of Treatment Health Maintenance Due Date Last Done Comments HPV VACCINES (1 - 3-dose series) 2015 DTAP/TDAP/TD VACCINES (1 - Tdap) 2019 HEPATITIS B VACCINES (1 of 3 - 19+ 3-dose series) 11/10 CERVICAL CANCER SCREENING 2021 HPV/Cotest (21-29) 2021 PAP SMEAR 2021 INFLUENZA VACCINE (#1) 2025 Insurance [facility] OPTIONS PPO [id number]
== END 2025-09-13 13:30 | disposition home or self-care (01) ==
PROVIDERS: Admitting Provider Student in an Organized Health Care Education/Training Program; Visit Provider Student in an Organized Health Care Education/Training Program
DX: O47.03 False labor before 37 completed weeks of gestation, third trimester (principal); Z3A.32 32 weeks gestation of pregnancy
CPT/HCPCS: 81001; 96372; G0378; G0379; J3105

== ENCOUNTER 2025-10-23 16:22 | Outpatient (CLI) | payer OTHER, MEDICAID, SELFPAY ==
[2025-10-23] VITALS (8 sets, daily range): BP systolic 119–138; BP diastolic 63–81; PULSE 76–96; BMI 32.3
[2025-10-23 17:00] LABS: Hematocrit 34.9 % (37.0-47.0); Hemoglobin 11.5 g/dL (12.0-15.0); Immature Granulocyte Percent A 0.6 % (0-0.5); Lymphocytes Absolute Auto 1.95 K/mm3 (0.9-3.2); Mean Corpuscular HGB Conc 33.0 g/dl (32-36); Mean Corpuscular Hemoglobin 30.0 pg (26-34); Mean Corpuscular Volume 91.1 fl (80-100); Nucleated Red Blood Cells Absolute Auto 0.020 K/mm3 (0.0-0.012); Nucleated Red Blood Cells Perc 0.2 % (0.0-0.2); Platelet Count Result 171 k/mm3 (150-375); Red Blood Count 3.83 M/mm3 (4.2-5.4); White Blood Count 8.1 K/mm3 (4.5-10.0)
[2025-10-23 17:06] LABS: Add Urine Microscopic? YES; Appearance Urine Clear (Clear); Glucose Urine UA Negative (Negative); Leukocyte Esterase Ur Trace LEU/UL (Negative); Nitrate Urine Negative (Negative); Non Pathogenic Casts 0-2; Specific Grav Ur 1.005 (1.001-1.035)
[2025-10-23 17:22] LABS: Alanine Aminotransferase 22 U/L (6-35); Albumin Level 3.9 g/dL (3.5-5.1); Alkaline Phosphatase 209 U/L (38-126); Anion Gap 4 mmol/L (4-12); Aspartate Amino Transferase 40 U/L (14-36); Bilirubin,Total 0.7 mg/dL (0.2-1.3); Blood Urea Nitrogen 7 mg/dL (7-17); Calcium 9.8 mg/dL (8.4-10.2); Carbon Dioxide 25 mmol/L (22-30); Chloride 105 mmol/L (98-107); Estimated Glomerular Filt Rate > 60; Glucose 85 mg/dL (65-110); Potassium 4.0 mmol/L (3.4-5.0); Sodium 134 mmol/L (137-145); Total Protein 7.3 g/dL (6.3-8.2); Uric Acid 5.5 mg/dL (2.5-7.5)
[2025-10-23 17:23] LABS: Total Protein Urine Random 13 mg/dL; Ur Ttl Prot Creatinine Ratio 0.70 mg/mg (0-0.20)
--- NOTE | 2025-10-23 18:19 | PC.NURSE ---
Labs discussed with Dr Schmid, going to talk to Patient.
--- NOTE | 2025-10-23 18:26 | PM.OBTRLD ---
OB - Triage/Final Diagnosis Visit Information Date of evaluation: 10/23/25 Reason for evaluation: other (elevated blood pressure) Comments/Additional reasons for admission: I have assessed the risk for this patient, Tia Olivares, and determined that she would benefit from observation care. Evaluation Laboratory results: Laboratory Tests 10/23/25 10/23/25 16:49 16:50 WBC 8.1 RBC 3.83 L Hgb 11.5 L Hct 34.9 L MCV 91.1 MCH 30.0 MCHC 33.0 RDW 14.2 Plt Count 171 MPV 10.6 H Immature Gran % (Auto) 0.6 H Neut % (Auto) 66.2 Lymph % (Auto) 24.1 [place] % (Auto) 8.5 Eos % (Auto) 0.5 Baso % (Auto) 0.1 L Lymph # (Auto) 1.95 [place] # (Auto) 0.7 H Eos # (Auto) 0.0 Baso # (Auto) 0.0 Abs Immat Gran (auto) 0.05 H Absolute Neuts (auto) 5.3 Absolute Nucleated RBC 0.020 H Nucleated RBC % 0.2 Sodium 134 L Potassium 4.0 Chloride 105 Carbon Dioxide 25 Anion Gap 4 BUN 7 Creatinine 0.78 Estim Creat Clear Calc Not Reportable Estimated GFR > 60 Glucose 85 Uric Acid 5.5 Calcium 9.8 Total Bilirubin 0.7 AST 40 H ALT 22 Alkaline Phosphatase 209 H Total Protein 7.3 Albumin 3.9 Urine Color Yellow Urine Appearance Clear Urine pH 7.5 Ur Specific [place] 1.005 Urine Protein Negative Urine Glucose (UA) Negative Urine Ketones Negative Ur Blood (Man) Negative Urine Nitrate Negative Urine Bilirubin Negative Urine Urobilinogen 0.2 Leukocyte Esterase Rfl Trace H Urine RBC 0-2 Urine WBC 0-5 Ur Squamous Epith Cells Occasional Urine Bacteria Rare Urine Casts 0-2 U Random Total Protein 13 Urine Creatinine 18.5 Protein/Creat Ratio 2 0.70 H Vital signs: Vital Signs - 24 hr 10/23/25 16:56 10/23/25 17:00 10/23/25 17:15 Pulse Rate 78 86 76 Blood Pressure 119/63 126/70 127/64 10/23/25 17:30 10/23/25 17:45 10/23/25 18:00 Pulse Rate 85 93 96 Blood Pressure 123/65 119/73 124/70 10/23/25 18:15 Pulse Rate 87 Blood Pressure 138/81
== END 2025-10-23 18:55 | disposition home or self-care (01) ==
LOC: ANHOBOP 16:26 → ANHOBPP 16:27
PROVIDERS: Visit Provider Student in an Organized Health Care Education/Training Program
DX: O13.9 Gestational [pregnancy-induced] hypertension without significant proteinuria, unspecified trimester (principal); Z3A.00 Weeks of gestation of pregnancy not specified
CPT/HCPCS: 36415; 59025; 80053; 81001; 82570; 84156; 84550; 85025; 99199

== ENCOUNTER 2025-10-27 12:00 | Outpatient (RCR) | payer OTHER, MEDICAID, SELFPAY ==
[2025-10-25 13:57] VITALS: BP 100/66; PULSE 128
--- NOTE | ~2025-10-27 | US_ITS ---
EXAMINATION: US OB BPP wo non-stress, 10/25/2025 13:08 SALES DEVELOPMENT REPRESENTATIVE HISTORY: BPP, PIH Comparison: None Technique: Arita-scale and color Doppler images were obtained. Findings: Single live intrauterine , heart rate 153. Fetus is in longitudinal lie with vertex presentation Placental location posterior DVP 2.53 BPP 06/16 IMPRESSION: Single live intrauterine detailed above Reviewed, dictated and finalized at location P. S DEVELOPMENT REPRESENTATIVE
--- NOTE | ~2025-10-27 | US_ITS ---
EXAMINATION: US OB BPP wo non-stress DATE: 10/27/2025 13:50 INDICATION: -induced hypertension during third trimester TECHNIQUE: Real-time pelvic ultrasound was performed. The interpreting radiologist was not present for the study. COMPARISON: 10/25/2025 FINDINGS: There is a single living fetus in vertex presentation. The placenta is posterior fundal. heart rate is 143 beats per minute (bpm). Oligohydramnios with amniotic fluid index of 4.9 cm (5th%-95%: 7.3-33.9 cm at weeks estimated gestational age) Biophysical profile performed by the technologist: breathing (30 sec sustained breathing in 30 minutes): 2 out of 2 movement (3 gross body movements in 30 minutes): 2 out of 2 tone (one episode of rdbphjz-vtgkvwmev-qxxbbrt limb movement): 2 out of 2 Amniotic fluid pocket (2 cm): 2 out of 2 Total score: 8 out of 8 IMPRESSION: 1. Single living fetus in vertex presentation with heart rate of 143 bpm. 2. Biophysical profile 8 out of 8. 3. Oligohydramnios with amniotic fluid index of 4.9 cm. Reviewed, dictated and finalized at location A. WINDER
[2025-10-27 12:48] LABS: Hematocrit 33.9 % (37.0-47.0); Hemoglobin 11.3 g/dL (12.0-15.0); Immature Granulocyte Percent A 1.0 % (0-0.5); Lymphocytes Absolute Auto 1.65 K/mm3 (0.9-3.2); Mean Corpuscular HGB Conc 33.3 g/dl (32-36); Mean Corpuscular Hemoglobin 30.3 pg (26-34); Mean Corpuscular Volume 90.9 fl (80-100); Nucleated Red Blood Cells Absolute Auto 0.000 K/mm3 (0.0-0.012); Nucleated Red Blood Cells Perc 0.0 % (0.0-0.2); Platelet Count Result 153 k/mm3 (150-375); Red Blood Count 3.73 M/mm3 (4.2-5.4); White Blood Count 7.2 K/mm3 (4.5-10.0)
[2025-10-27 12:51] LABS: Add Urine Microscopic? YES; Appearance Urine Cloudy (Clear); Glucose Urine UA Negative (Negative); Leukocyte Esterase Ur Trace LEU/UL (Negative); Nitrate Urine Negative (Negative); Non Pathogenic Casts 0-2; Specific Grav Ur 1.007 (1.001-1.035)
[2025-10-27 12:58] VITALS: BP 123/64; PULSE 81
[2025-10-27 13:07] LABS: Alanine Aminotransferase 21 U/L (6-35); Albumin Level 3.6 g/dL (3.5-5.1); Alkaline Phosphatase 213 U/L (38-126); Anion Gap 7 mmol/L (4-12); Aspartate Amino Transferase 38 U/L (14-36); Bilirubin,Total 0.6 mg/dL (0.2-1.3); Blood Urea Nitrogen 7 mg/dL (7-17); Calcium 9.5 mg/dL (8.4-10.2); Carbon Dioxide 22 mmol/L (22-30); Chloride 107 mmol/L (98-107); Estimated Glomerular Filt Rate > 60; Glucose 112 mg/dL (65-110); Potassium 3.7 mmol/L (3.4-5.0); Sodium 136 mmol/L (137-145); Total Protein 7.0 g/dL (6.3-8.2); Uric Acid 6.5 mg/dL (2.5-7.5)
[2025-10-27 13:16] LABS: Total Protein Urine Random 9 mg/dL; Ur Ttl Prot Creatinine Ratio 0.22 mg/mg (0-0.20)
[2025-10-27 14:33] VITALS: BP 123/64
== END 2025-11-08 10:20 | disposition other institution (70) ==
LOC: ANHOBOP 12:00
PROVIDERS: Visit Provider Student in an Organized Health Care Education/Training Program
DX: O13.3 Gestational [pregnancy-induced] hypertension without significant proteinuria, third trimester (principal); O41.03X0 Oligohydramnios, third trimester, not applicable or unspecified; O48.0 Post-term pregnancy; Z3A.40 40 weeks gestation of pregnancy
CPT/HCPCS: 36415; 59025; 76819; 80053; 81001; 82570; 84156; 84550; 85025

== ENCOUNTER 2025-10-29 18:28 | Outpatient (CLI) | payer OTHER, MEDICAID, SELFPAY ==
[2025-10-29] VITALS (13 sets, daily range): BP systolic 121–134; BP diastolic 62–73; PULSE 93–111; O2SAT 97–99
--- OUTSIDE RECORDS SUMMARY | 2025-10-29 18:34 | XMS_ITS | Clinical Summary ---
Author Organization [facility] Address [address] [place] [address] Phone Care Team Providers Care Core Rescuer Name Role Phone Unavailable Primary Care Provider [...] SMEAR 2021 INFLUENZA VACCINE (#1) 2025 Insurance [facility] OPTIONS PPO [id number]
[2025-10-29 18:59] LABS: Add Urine Microscopic? NO; Appearance Urine Clear (Clear); Glucose Urine UA Negative (Negative); Hematocrit 33.0 % (37.0-47.0); Hemoglobin 11.1 g/dL (12.0-15.0); Immature Granulocyte Percent A 0.4 % (0-0.5); Leukocyte Esterase Ur Negative LEU/UL (Negative); Lymphocytes Absolute Auto 1.79 K/mm3 (0.9-3.2); Mean Corpuscular HGB Conc 33.6 g/dl (32-36); Mean Corpuscular Hemoglobin 30.2 pg (26-34); Mean Corpuscular Volume 89.7 fl (80-100); Nitrate Urine Negative (Negative); Nucleated Red Blood Cells Absolute Auto 0.000 K/mm3 (0.0-0.012); Nucleated Red Blood Cells Perc 0.0 % (0.0-0.2); Platelet Count Result 160 k/mm3 (150-375); Red Blood Count 3.68 M/mm3 (4.2-5.4); Specific Grav Ur 1.007 (1.001-1.035); White Blood Count 7.6 K/mm3 (4.5-10.0)
[2025-10-29 19:07] LABS: Total Protein Urine Random 8 mg/dL; Ur Ttl Prot Creatinine Ratio 0.19 mg/mg (0-0.20)
[2025-10-29 19:08] LABS: Alanine Aminotransferase 19 U/L (6-35); Albumin Level 3.6 g/dL (3.5-5.1); Alkaline Phosphatase 212 U/L (38-126); Anion Gap 7 mmol/L (4-12); Aspartate Amino Transferase 30 U/L (14-36); Bilirubin,Total 0.5 mg/dL (0.2-1.3); Blood Urea Nitrogen 10 mg/dL (7-17); Calcium 9.0 mg/dL (8.4-10.2); Carbon Dioxide 21 mmol/L (22-30); Chloride 107 mmol/L (98-107); Estimated Glomerular Filt Rate > 60; Glucose 115 mg/dL (65-110); Potassium 4.1 mmol/L (3.4-5.0); Sodium 135 mmol/L (137-145); Total Protein 6.9 g/dL (6.3-8.2); Uric Acid 7.6 mg/dL (2.5-7.5)
--- NOTE | 2025-10-29 19:41 | PC.NURSE ---
1940 - Dr. Bennett notified of reactive tracing, BPs, lab results. Orders received for DC.
== END 2025-10-29 19:51 | disposition home or self-care (01) ==
LOC: ANHOBOP 18:33 → ANHLDR 18:33
PROVIDERS: Obstetrics & Gynecology; Visit Provider Student in an Organized Health Care Education/Training Program
DX: O13.9 Gestational [pregnancy-induced] hypertension without significant proteinuria, unspecified trimester (principal); Z3A.00 Weeks of gestation of pregnancy not specified
CPT/HCPCS: 36415; 59025; 80053; 81003; 82570; 84156; 84550; 85025; 99199

== ENCOUNTER 2025-11-04 08:32 | Inpatient (IN) | payer OTHER, MEDICAID, SELFPAY ==
[2025-11-04] VITALS (66 sets, daily range): BP systolic 112–150; BP diastolic 60–104; PULSE 68–123; RESP 16; TEMP 36.6–37.1; O2SAT 98–100; BMI 32.2
--- OUTSIDE RECORDS SUMMARY | 2025-11-04 08:52 | XMS_ITS | Clinical Summary ---
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
--- OUTSIDE RECORDS SUMMARY | 2025-11-04 08:52 | XMS_ITS | Clinical Summary ---
Author Organization [facility] Address [address] [place] [address] Phone Care Team Providers Care Human Relations Teacher Name Role Phone Unavailable Primary Care Provider [...] SMEAR 2021 INFLUENZA VACCINE (#1) 2025 Insurance [facility] OPTIONS PPO [id number]
[2025-11-04 09:06] LABS: Hematocrit 36.1 % (37.0-47.0); Hemoglobin 11.9 g/dL (12.0-15.0); Immature Granulocyte Percent A 1.0 % (0-0.5); Lymphocytes Absolute Auto 1.79 K/mm3 (0.9-3.2); Mean Corpuscular HGB Conc 33.0 g/dl (32-36); Mean Corpuscular Hemoglobin 29.8 pg (26-34); Mean Corpuscular Volume 90.3 fl (80-100); Nucleated Red Blood Cells Absolute Auto 0.020 K/mm3 (0.0-0.012); Nucleated Red Blood Cells Perc 0.2 % (0.0-0.2); Platelet Count Result 168 k/mm3 (150-375); Red Blood Count 4.00 M/mm3 (4.2-5.4); White Blood Count 9.0 K/mm3 (4.5-10.0)
[2025-11-04] MEDS: LACTATED RINGERS 1,000 ML 125 ML IV CONT ×2 (09:14→09:35)
[2025-11-04 09:25] LABS: Alanine Aminotransferase 18 U/L (6-35); Albumin Level 4.0 g/dL (3.5-5.1); Alkaline Phosphatase 266 U/L (38-126); Anion Gap 10 mmol/L (4-12); Aspartate Amino Transferase 38 U/L (14-36); Bilirubin,Total 0.7 mg/dL (0.2-1.3); Blood Urea Nitrogen 9 mg/dL (7-17); Calcium 9.4 mg/dL (8.4-10.2); Carbon Dioxide 20 mmol/L (22-30); Chloride 105 mmol/L (98-107); Estimated CRCL calculation 88 ml/min; Estimated Glomerular Filt Rate > 60; Glucose 87 mg/dL (65-110); Potassium 4.1 mmol/L (3.4-5.0); Sodium 135 mmol/L (137-145); Total Protein 7.6 g/dL (6.3-8.2); Uric Acid 6.1 mg/dL (2.5-7.5)
--- NOTE | 2025-11-04 09:27 | WPDHPUPDATE1 ---
History and Physical Update Update Date/Time: 11/04/25 09:27 24 yo who presents at 39w6d in labor. 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 History and Physical has been reviewed, including an updated exam of the patient. There are NO changes in the patient's condition. Risks, benefits, and alternatives have been discussed and questions answered. Patient agrees to proceed with procedure. A/P: admit to L&D routine admission orders prenatals reviewed Rh+ GBS neg continuous EFM epidural PRN will augment with AROM
--- NOTE | 2025-11-04 09:48 | LDADM ---
This patient, Tia Olivares, was admitted to Labor/Delivery/Recovery 107 on 11/04/25 at 08:32. Plans for labor, pain management and were discussed with patient. Patient/family oriented to hospital policies and general routines including ID bracelet, bed and alarms, visiting hours, pain management, procedures, bathroom and other care routines, personal items, smoking policy, room service/diet and guest tray routines, security routines, and visiting hours. Patient/Family are encouraged to report perceived risks to care and to ask questions if they do not understand what they are told or what they should do. See OBIX for further documentation.
[2025-11-04 09:52] LABS: Syphilis IgG/IgM Antibody Non-Reactive (Nonreactive)
[2025-11-04] MEDS: OXYTOCIN 30 UNITS/NS 500 ML 30 UNITS/500 ML BAG 999 UNITS IV CONT (12:22)
--- NOTE | 2025-11-04 12:25 | PM.OBPRVD ---
OB - Vaginal Delivery Note Procedure Delivery date: 11/04/25 Induction method: None Delivery augmentation: Rupture of Membranes Delivery monitor: External FHT and External Uterine Route of delivery: Episiotomy description: None Laceration Description: None Specimen: No Quantitative Blood Loss (ml): 200 Anesthesia type: Epidural Narrative: Patient pushed for a spontaneous vaginal delivery. The fetus was delivered atraumatically and placed on the maternal abdomen. The cord was clamped and cut after 1 minute of life. The cord was double clamped and cut and a segment of cord was collected for cord gases. Cord blood was collected for blood type and Coomb's testing. The placenta delivered spontaneously and was noted to be intact. The perineum was inspected and noted to be intact. The fundus was noted to be firm and good hemostasis was noted. The mom and were stable in the delivery room. [place] Baby Date of : 11/04/25 Time of : 12:17 Gestational Age by Date: 39 gender: Male presentation: vertex position: Right Occiput Anterior Placenta delivery description: Spontaneous Cord Vessel Description: 3 Vessels score one minute: 9 score five minutes: 9
[2025-11-04] MEDS: OXYTOCIN 30 UNITS/NS 500 ML 30 UNITS/500 ML BAG 125 UNITS IV CONT (12:46)
[2025-11-04] MEDS: IBUPROFEN 600 MG TABLET PO (14:15)
[2025-11-04] MEDS: WITCH HAZEL 40 PADS 1 PAD TOPICAL (14:16)
[2025-11-04] MEDS: BENZOCAINE 20% AER SPR (*SP) 56 GM CAN 1 SPRAY TOPICAL (14:16)
--- NOTE | 2025-11-04 14:31 | NBIDPHOTO ---
PHOTO ONLY - See Nursing Notes and/ or assessments for documentation.
--- NOTE | 2025-11-04 14:55 | OBPPTRN ---
Patient transferred to post room #281 via wheelchair. Support person present. Oriented to unit, room, information board, rooming in, admission packet and security measures. Patient verbalizes understanding.
[2025-11-04] MEDS: LANOLIN (LANSINOH) 7.5 GM CREAM 1 APPLIC TOPICAL (19:00)
[2025-11-05] VITALS (8 sets, daily range): BP systolic 112–142; BP diastolic 60–99; PULSE 62–86; RESP 16; TEMP 36.1–37; O2SAT 99–100
[2025-11-05] MEDS: IBUPROFEN 600 MG TABLET PO ×3 (00:07→20:11)
[2025-11-05] MEDS: ACETAMINOPHEN 325 MG TABLET 650 MG PO ×3 (00:08→20:11)
[2025-11-05 03:55] LABS: Hematocrit 32.3 % (37.0-47.0); Hemoglobin 10.6 g/dL (12.0-15.0)
[2025-11-05] MEDS: MULTIVIT/MIN/PREN/FOL AC/IRON TABLET 1 TAB PO (07:52)
[2025-11-05] MEDS: DOCUSATE SODIUM 100 MG CAPSULE PO (07:56)
--- NOTE | 2025-11-05 08:06 | P.PNOB_ITS ---
OB - PN: Subj Subjective Date/time seen: 11/05/25 08:06 Patient comments: no complaints, pain well controlled and tolerating diet [place] feeding status: exclusively breast feeding Narrative: patient doing well this AM. No complaints. Pain is well controlled. She reports minimal bleeding. She is ambulating and voiding without difficulty. She is tolerating PO. She denies N/V, fever, chills. OB - PN: Obj Data Labs 11/05/25 03:37 11/04/25 09:00 Labs: Laboratory Results - last 24 hr 11/04/25 11/05/25 09:00 03:37 WBC 9.0 RBC 4.00 L Hgb 11.9 L 10.6 L Hct 36.1 L 32.3 L MCV 90.3 MCH 29.8 MCHC 33.0 RDW 14.5 Plt Count 168 MPV 10.5 H Immature Gran % (Auto) 1.0 H Neut % (Auto) 71.8 Lymph % (Auto) 20.0 [place] % (Auto) 6.5 Eos % (Auto) 0.3 Baso % (Auto) 0.4 Lymph # (Auto) 1.79 [place] # (Auto) 0.6 Eos # (Auto) 0.0 Baso # (Auto) 0.0 Abs Immat Gran (auto) 0.09 H Absolute Neuts (auto) 6.4 Absolute Nucleated RBC 0.020 H Nucleated RBC % 0.2 Sodium 135 L Potassium 4.1 Chloride 105 Carbon Dioxide 20 L Anion Gap 10 BUN 9 Creatinine 0.95 Estim Creat Clear Calc 88 Estimated GFR > 60 Glucose 87 Uric Acid 6.1 Calcium 9.4 Total Bilirubin 0.7 AST 38 H ALT 18 Alkaline Phosphatase 266 H Total Protein 7.6 Albumin 4.0 Syphilis IgG/IgM Ab Non-reactive Blood Type AB Positive Antibody Screen Negative OB - PN A/P Plan day: 1 Plan: routine care Comments: patient doing well H/H stable pt desires circumcision. risks, benefits, alternatives discussed. continue routine care Time Spent With Patient Time: Total time spent is greater than 50% in coordination of care (as documented) at patient's floor/unit and/or counseling patient: Time with patient: less than 15 minutes Review of Systems 2 Review of Systems: All systems reviewed & are unremarkable except as noted in HPI and below Exam 2 Const: General: comfortable and no acute distress Resp: Effort & Inspection: normal respiratory effort Auscultation: clear to auscultation bilaterally Cardio: Rate: regular rate GI: GI Palp: Yes Soft to palpation Auscultation: normal bowel sounds O ther: Fundus firm below umbilicus Psych: Appearance: grossly normal Mental Status: mental status grossly normal Affect: normal affect
[2025-11-06 03:10] VITALS: BP 122/70; PULSE 67; RESP 16; O2SAT 100
--- NOTE | 2025-11-06 07:19 | PM.OBDSVD ---
DS: Admitting Diagnosis Discharge Date 11/06/25 Admitting Diagnosis intrauterine at term preeclampsia DS: Discharge Diagnosis Discharge Diagnosis (1) (normal spontaneous vaginal delivery): Code(s): O80 - Encounter for full-term uncomplicated delivery Status: Acute OB - DS: Summary OB Procedures : None OB Procedures Intrapartum: Spontaneous Vag Delivery OB Procedures: : None Peripartum Data Laceration Description: None Episiotomy description: None Status at Discharge Functional status at discharge: independent ambulation Overall status at discharge: patient is back to baseline Time Spent with Patient Time attestation: Total time spent providing and/or coordinating discharge services: Time spent: Less than 30 minutes Exam Const: General: comfortable and no acute distress Resp: Effort & Inspection: normal respiratory effort Auscultation: clear to auscultation bilaterally Cardio: Rate: regular rate GI: GI Palp: Yes Soft to palpation Auscultation: normal bowel sounds Other: Fundus firm below umbilicus Psych: Appearance: grossly normal Mental Status: mental status grossly normal Affect: normal affect Discharge Plan Discharge Discharging Clinician: Bebeto Schmid Patient Disposition: Home Activity: as tolerated and pelvic rest Diet: regular Patient Instructions: Antibiotic Form, Vaginal Delivery (DC) Patient Language: Irish Stand Alone Forms: General Discharge Information Follow-up/Referrals: Bebeto Schmid MD [Physician, BACK ROLLER] Discharge Medications: New acetaminophen 500 mg tablet 500 mg PO Q6H PRN (Reason: pain) Qty: 30 0RF ibuprofen 600 mg tablet 600 mg PO Q6H PRN (Reason: pain) Qty: 30 0RF Continued vit-iron fum-folic ac 65 mg iron- 1 mg tablet 1 tablet PO DAILY valacyclovir [Valtrex] 500 mg tablet 500 mg PO DAILY 30 Days Qty: 30 0RF Date of admission: 11/04/25 08:32 Primary Care Provider: PHYSICIAN,AIRLINE CAPTAIN Admitting Provider: Bebeto Schmid Attending physician on admission: Bebeto Schmid Condition: Stable
[2025-11-06 07:35] VITALS: BP 120/78; PULSE 65; RESP 12; TEMP 36.8; O2SAT 100
[2025-11-06] MEDS: DOCUSATE SODIUM 100 MG CAPSULE PO (08:54)
[2025-11-06] MEDS: MULTIVIT/MIN/PREN/FOL AC/IRON TABLET 1 TAB PO (08:54)
[2025-11-06] MEDS: ACETAMINOPHEN 325 MG TABLET 650 MG PO (08:54)
[2025-11-06] MEDS: IBUPROFEN 600 MG TABLET PO (08:54)
--- NOTE | 2025-11-06 10:00 | PC.NURSE ---
Consulted with mother concerning needs and she shared her ability to independently latch infant optimally without pain. Per mother she had been also supplementing with formula due to infant weight loss but feels like her milk is coming in, encouraged mother to continue to put to breast with each feeding. Mother is feeding appropriately for growth of infant and understands stimulating infant to eat if needed. has had appropriate feedings in the last 24 hours meets the outcomes for weight, output, blood sugar and jaundice at this time. Reinforced understanding of milk production, transition of milk, signs of adequate intake, transition of stool, prevention/relief of engorgement, plugged ducts, mastitis, responsive watching for feeding cues, the different methods of stimulating to breastfeed 1-3 hours after the start of the last feeding, community resources, and when to call a provider using the resource of the feeding sheet along with the mom and baby guide. Mother voiced understanding of the information shared, is confident to continue effectively her infant at home, when to call for assistance, denies any additional assistance or education at this time. Declined [facility] referral as she is already set up with a [facility] counselor. Reported to the Primary RN.
[2025-11-07 11:32] VITALS: BP 134/75; PULSE 71; RESP 18; TEMP 36.7; O2SAT 100
== END 2025-11-06 10:38 | disposition home or self-care (01) | DRG 806 ==
LOC: ANHLDR 08:50 → ANHOB2 15:01
PROVIDERS: Admitting Provider Student in an Organized Health Care Education/Training Program; Visit Provider Student in an Organized Health Care Education/Training Program
DX: O14.04 Mild to moderate pre-eclampsia, complicating childbirth (principal); O98.32 Other infections with a predominantly sexual mode of transmission complicating childbirth; Z37.1 Single stillbirth; Z3A.39 39 weeks gestation of pregnancy; A60.09 Herpesviral infection of other urogenital tract
CPT/HCPCS: 36415; 80053; 84550; 85014; 85018; 85025; 86593; 86850; 86900; 86901; A9270; J2590; J2795; J7120